=== PATIENT | male | born 2000 | race Caucasian/White ===

== ENCOUNTER → 2020-02-07 | Outpatient (CLI) | payer SELFPAY ==
[~2020-02-07] MED LIST: CLAR5CHW; LORATADINE; PULM0.25; TYLENOL #3 ELIXIR
== END ==
LOC: M LABSMTC 11:07
PROVIDERS: ATTEND Pediatrics
DX: Z20.828 Contact with and (suspected) exposure to other viral communicable diseases (principal)

== ENCOUNTER → 2020-09-20 | Outpatient (CLI) | payer SELFPAY | LOC: M LABSMTC 09:48 | PROVIDERS: ATTEND Pediatrics | DX: Z20.828 Contact with and (suspected) exposure to other viral communicable diseases (principal); Z11.59 Encounter for screening for other viral diseases ==

== ENCOUNTER → 2020-12-14 | Outpatient (CLI) | payer OTHER ==
[2020-12-14 14:28] LABS: BASO % 0.3 % (0.0-1.0); EOS # 0.2 10^3/uL (0.0-0.5); EOS % 3.3 % (0.0-3.0); HEMATOCRIT 41.4 % (42.0-52.0); HEMOGLOBIN 13.8 g/dl (13.5-17.5); MEAN CORPUSCULAR HEMOGLOBIN 29.2 pg (27.0-33.0); MEAN CORPUSCULAR HGB CONC 33.3 g/dl (32.0-36.5); MEAN CORPUSCULAR VOLUME 87.7 fl (80.0-96.0); MONO # 0.7 10^3/uL (0.0-0.8); MONO % 10.2 % (2.0-8.0); NEUTROPHILS # 4.3 10^3/uL (1.5-8.5); NEUTROPHILS % 59.1 % (36.0-66.0); PLATELET COUNT, AUTOMATED 280 10^3/uL (150-450); RED BLOOD COUNT 4.72 10^6/uL (4.30-6.10); WHITE BLOOD COUNT 7.3 10^3/uL (4.0-10.0)
[2020-12-14 14:59] LABS: ALBUMIN 3.6 GM/DL (3.2-5.2); ALT/SGPT 25 U/L (12-78); BILIRUBIN,TOTAL 0.3 MG/DL (0.2-1.0); BLOOD UREA NITROGEN 20 MG/DL (7-18); CALCIUM LEVEL 9.2 MG/DL (8.5-10.1); CARBON DIOXIDE LEVEL 26 MEQ/L (21-32); CHLORIDE LEVEL 109 MEQ/L (98-107); CREATININE FOR GFR 0.69 MG/DL (0.70-1.30); GLUCOSE, FASTING 86 MG/DL (70-100); RHEUMATOID FACTOR QUANT < 10.0 IU/ML (<15.0); SODIUM LEVEL 140 MEQ/L (136-145); TOTAL PROTEIN 6.9 GM/DL (6.4-8.2)
[2020-12-14 15:07] LABS: ERYTHROCYTE SEDIMENTATION RATE 6 mm/hr (0-15)
[2020-12-16 12:09] LABS: VITAMIN B12 LEVEL 353 PG/ML
[2020-12-16 12:25] LABS: FOLATE 17.2 NG/ML
[2020-12-16 15:20] LABS: ALBUMIN % 58.2 % (55.8-66.1); ALPHA-1-GLOBULIN % 3.8 % (2.9-4.9); ALPHA-2-GLOBULINS % 11.3 % (7.1-11.8); BETA-1-GLOBULINS % 5.8 % (4.7-7.2)
[2020-12-16 15:21] LABS: ALBUMIN 4.02 GM/DL (3.29-5.55); ALPHA-1-GLOBULINS 0.26 GM/DL (0.17-0.41); ALPHA-2-GLOBULINS 0.78 GM/DL (0.42-0.99); BETA-2-GLOBULINS 0.43 GM/DL (0.19-0.55); BETA-2-GLOBULINS % 6.2 % (3.2-6.5); GAMMA GLOBULIN % 14.7 % (11.1-18.8); GAMMA GLOBULINS 1.01 GM/DL (0.65-1.58)
== END ==
LOC: M LAB 13:41
PROVIDERS: ATTEND Psychiatry & Neurology Neurology
DX: R25.1 Tremor, unspecified (principal); R53.1 Weakness

== ENCOUNTER 2020-12-25 08:53 | Emergency (ER) | payer OTHER ==
[~2020-12-25] VITALS: Ht 185.4 cm; Wt 101.7 kg
--- OUTSIDE RECORDS SUMMARY | 2020-12-25 09:01 | CCD ---
Author Author [facility] Organization [facility] Address Unknown Phone Unavailable Care Team Providers Care Special Services Coordinator Name Role Phone Mayela CLEMENT MD Unavailable Unavailable Mayela CLEMENT MD Unavailable Unavailable Mayela CLEMENT MD Unavailable Unavailable Mayela CLEMENT MD Unavailable Unavailable Mayela CLEMENT MD Unavailable Unavailable Mayela CLEMENT MD Unavailable Unavailable Mayela CLEMENT MD Unavailable Unavailable Mayela CLEMENT MD Unavailable Unavailable Mayela CLEMENT MD Unavailable Unavailable Mayela CLEMENT MD Unavailable Unavailable Mayela CLEMENT MD Unavailable Unavailable Mayela CLEMENT MD Unavailable Unavailable Mayela CLEMENT MD Unavailable Unavailable Mayela CLEMENT MD Unavailable Unavailable Mayela CLEMENT MD Unavailable Unavailable aMyela CLEMENT MD Unavailable Unavailable Mayela CLEMENT MD Unavailable Unavailable Mayela CLEMENT MD Unavailable Unavailable Mayela CLEMENT MD Unavailable Unavailable Mayela CLEMENT MD Unavailable Unavailable Mayela CLEMENT MD Unavailable Unavailable Mayela CLEMENT MD Unavailable Unavailable Mayela CLEMENT MD Unavailable Unavailable Mayela CLEMENT MD Unavailable Unavailable Mayela CLEMENT MD Unavailable Unavailable Mayela CLEMENT MD Unavailable Unavailable Mayela CLEMENT MD Unavailable Unavailable Mayela CLEMENT MD Unavailable Unavailable Mayela CLEMENT MD Unavailable Unavailable Mayela CLEMENT MD Unavailable Unavailable Mayela CLEMENT MD Unavailable Unavailable Mayela CLEMENT MD Unavailable Unavailable Mayela CLEMENT MD Unavailable Unavailable Mayela CLEMENT MD Unavailable Unavailable Mayela CLEMENT MD Unavailable Unavailable Mayela CLEMENT MD Unavailable Unavailable Mayela CLEMENT MD Unavailable Unavailable Mayela CLEMENT MD Unavailable Unavailable Mayela CLEMENT MD Unavailable Unavailable Mayela CLEMENT MD Unavailable Unavailable Mayela CLEMENT MD Unavailable Unavailable Mayela CLEMENT MD Unavailable Unavailable Mayela CLEMENT MD Unavailable Unavailable Mayela CLEMENT MD Unavailable Unavailable Mayela CLEMENT MD Unavailable Unavailable Mayela CLEMENT MD Unavailable Unavailable Mayela CLEMENT MD Unavailable Unavailable Mayela CLEMENT MD Unavailable Unavailable Mayela CLEMENT MD Unavailable Unavailable Mayela CLEMENT MD Unavailable Unavailable Mayela CLEEMNT MD Unavailable Unavailable Mayela CLEMENT MD Unavailable Unavailable Mayela CLEMENT MD Unavailable Unavailable Mayela CLEMENT MD Unavailable Unavailable Mayela CLEMENT MD Unavailable Unavailable Mayela CLEMENT MD Unavailable Unavailable Mayela CLEMENT MD Unavailable Unavailable Mayela CLEMENT MD Unavailable Unavailable Mayela CLEMENT MD Unavailable Unavailable Mayela CLEMENT MD Unavailable Unavailable Mayela CLEMENT MD Unavailable Unavailable Mayela CLEMENT MD Unavailable Unavailable Mayela CLEMENT MD Unavailable Unavailable Mayela CLEMENT MD Unavailable Unavailable Mayela CLEMENT MD Unavailable Unavailable Mayela CLEMENT MD Unavailable Unavailable Mayela CLEMENT MD Unavailable Unavailable Mayela CLEMENT MD Unavailable Unavailable Mayela CLEMENT MD Unavailable Unavailable Mayela CLEMENT MD Unavailable Unavailable Mayela CLEMENT MD Unavailable Unavailable Mayela CLEMENT MD Unavailable Unavailable Mayela CLEMENT MD Unavailable Unavailable Mayela CLEMENT MD Unavailable Unavailable Mayela CLEMENT MD Unavailable Unavailable Mayela CLEMENT MD Unavailable Unavailable LANIEDE ARIAS MD Unavailable Unavailable LANIEDE MD Unavailable Unavailable LANIEDE MD Unavailable Unavailable LANIEDE MD Unavailable Unavailable LANIEDE MD Unavailable Unavailable LANIEDE MD Unavailable Unavailable LANIEDE MD Unavailable Unavailable LANIEDE MD Unavailable Unavailable LANIEDE MD Unavailable Unavailable LANIEDE MD Unavailable Unavailable LANIEDE MD Unavailable Unavailable LANIEDE MD Unavailable Unavailable LANIEDE MD Unavailable Unavailable LANIEDE MD Unavailable Unavailable LANIEDE MD Unavailable Unavailable LANIEDE MD Unavailable Unavailable LANIEDE MD Unavailable Unavailable LANIEDE MD Unavailable Unavailable LANIEDE MD Unavailable Unavailable LANIEDE MD Unavailable Unavailable LANIEDE MD Unavailable Unavailable LANIEDE MD Unavailable Unavailable LANIE, DE VAZQUEZ Unavailable Unavailable LANIE, DE VAZQUEZ Unavailable Unavailable LANIEDE MD Unavailable Unavailable LANIEDE ARIAS MD Unavailable Unavailable LANIEDE MD Unavailable Unavailable LANIEDE MD Unavailable Unavailable LANIE, DE VAZQUEZ Unavailable Unavailable LANIEDE MD Unavailable Unavailable LANIE, DE VAZQUEZ Unavailable Unavailable LANIE, DE VAZQUEZ Unavailable Unavailable LANIE, DE MD Unavailable Unavailable LANIE, DE MD Unavailable Unavailable LANIE, DE MD Unavailable Unavailable LANIE, DE MD Unavailable Unavailable LANIE, DE MD Unavailable Unavailable LANIE, DE MD Unavailable Unavailable LANIE, DE MD Unavailable Unavailable LANIE, DE MD Unavailable Unavailable LANIE, DE MD Unavailable Unavailable LANIE, DE MD Unavailable Unavailable LANIE, DE MD Unavailable Unavailable Tate ORTIZ DPM Unavailable Unavailable Tate ORTIZ DPM Unavailable Unavailable Tate ORTIZ DPM Unavailable Unavailable Tate ORTIZ DPM Unavailable Unavailable Tate ORTIZ DPM Unavailable Unavailable Tate ORTIZ DPM Unavailable Unavailable Tate ORTIZ DPM Unavailable Unavailable Tate ORTIZ DPM Unavailable Unavailable Tate ORTIZ DPM Unavailable Unavailable Tate ORTIZ DPM Unavailable Unavailable Tate ORTIZ DPM Unavailable Unavailable Tate ORTIZ DPM Unavailable Unavailable Tate ORTIZ DPM Unavailable Unavailable Tate ORTIZ DPM Unavailable Unavailable Tate ORTIZ DPM Unavailable Unavailable Tate ORTIZ DPM Unavailable Unavailable Tate ORTIZ DPM Unavailable Unavailable Tate ORTIZ DPM Unavailable Unavailable Tate ORTIZ DPM Unavailable Unavailable Tate ORTIZ DPM Unavailable Unavailable Tate ORTIZ DPM Unavailable Unavailable Tate ORTIZ DPM Unavailable Unavailable Tate ORTIZ DPM Unavailable Unavailable Tate ORTIZ DPM Unavailable Unavailable Tate ORTIZ DPM Unavailable Unavailable Tate ORTIZ DPM Unavailable Unavailable Tate ORTIZ DPM Unavailable Unavailable Tate ORTIZ DPM Unavailable Unavailable Tate ORTIZ DPM Unavailable Unavailable Tate ORTIZ DPM Unavailable Unavailable Tate ORTIZ DPM Unavailable Unavailable Isaura Vaca PA Unavailable Unavailable Isaura Vaca PA Unavailable Unavailable Isaura Vaca PA Unavailable Unavailable Isaura Vaca PA Unavailable Unavailable Isaura Vaca PA Unavailable Unavailable Isaura Vaca PA Unavailable Unavailable Isaura Vaca PA Unavailable Unavailable Isaura Vaca PA Unavailable Unavailable Isaura Vaca PA Unavailable Unavailable Isaura Vaca PA Unavailable Unavailable Nola, D Juno PA Unavailable Unavailable Nola, D Juno PA Unavailable Unavailable Nola, D Juno PA Unavailable Unavailable Nola, D Juno PA Unavailable Unavailable Nola, D Juno PA Unavailable Unavailable Nola, D Juno PA Unavailable Unavailable Nola, D Juno PA Unavailable Unavailable Nola, D Juno PA Unavailable Unavailable Nola, D Juno PA Unavailable Unavailable Nola, D Juno PA Unavailable Unavailable Nola, D Juno PA Unavailable Unavailable Nola, D Juno PA Unavailable Unavailable Nola, D Juno PA Unavailable Unavailable Nola, D Juno PA Unavailable Unavailable Nola, D Juno PA Unavailable Unavailable Nola, D Juno PA Unavailable Unavailable Nola, D Juno PA Unavailable Unavailable Nola, D Juno PA Unavailable Unavailable Nola, D Juno PA Unavailable Unavailable Nola, D Juno PA Unavailable Unavailable Nola, D Juno PA Unavailable Unavailable Nola, D Juno PA Unavailable Unavailable Nola, D Juno PA Unavailable Unavailable Nola, D Juno PA Unavailable Unavailable Nola, D Juno PA Unavailable Unavailable Nola, D Juno PA Unavailable Unavailable Nola, D Juno PA Unavailable Unavailable Nola, D Juno PA Unavailable Unavailable Nola, D Juno PA Unavailable Unavailable Nola, D Juno PA Unavailable Unavailable Nola, D Juno PA Unavailable Unavailable Nola, D Juno PA Unavailable Unavailable Nola, D Juno PA Unavailable Unavailable Nola, D Juno PA Unavailable Unavailable Nola, D Juno PA Unavailable Unavailable Nola, D Juno PA Unavailable Unavailable Nola, D Juno PA Unavailable Unavailable Nola, D Juno PA Unavailable Unavailable Nola, D Juno PA Unavailable Unavailable Nola, D Juno PA Unavailable Unavailable Nola, D Juno PA Unavailable Unavailable Nola, D Juno PA Unavailable Unavailable Nola, D Juno PA Unavailable Unavailable Nola, D Juno PA Unavailable Unavailable Nola, D Juno PA Unavailable Unavailable Nola, D Juno PA Unavailable Unavailable Nola, D Juno PA Unavailable Unavailable Nola, D Juno PA Unavailable Unavailable Nola, D Juno PA Unavailable Unavailable Nola, D Juno PA Unavailable Unavailable Nola, D Juno PA Unavailable Unavailable Nola, D Juno PA Unavailable Unavailable Nola, D Juno PA Unavailable Unavailable Nola, D Juno PA Unavailable Unavailable Nola, D Juno PA Unavailable Unavailable Nola, D Juno PA Unavailable Unavailable Nola, D Juno PA Unavailable Unavailable Nola, D Juno PA Unavailable Unavailable Fish, J Eugene Unavailable Unavailable Fish, J Eugene Unavailable Unavailable Fish, J Eugene Unavailable Unavailable Fish, J Eugene Unavailable Unavailable Fish, J Eugene Unavailable Unavailable Fish, J Eugene Unavailable Unavailable Fish, J Eugene Unavailable Unavailable Fish, J Eugene Unavailable Unavailable Fish, J Eugene Unavailable Unavailable Fish, J Eugene Unavailable Unavailable Fish, J Eugene Unavailable Unavailable Fish, J Eugene Unavailable Unavailable Fish, J Eugene Unavailable Unavailable Fish, J Eugene Unavailable Unavailable Fish, J Eugene Unavailable Unavailable Fish, J Eugene Unavailable Unavailable Fish, J Eugene Unavailable Unavailable Fish, J Eugene Unavailable Unavailable Fish, J Eugene Unavailable Unavailable Fish, J Eugene Unavailable Unavailable Fish, J Eugene Unavailable Unavailable Fish, J Eugene Unavailable Unavailable Fish, J Eugene Unavailable Unavailable Fish, J Eugene Unavailable Unavailable Fish, J Eugene Unavailable Unavailable Fish, J Eugene Unavailable Unavailable Fish, J Eugene Unavailable Unavailable Fish, J Eugene Unavailable Unavailable Fish, J Eugene Unavailable Unavailable Fish, J Eugene Unavailable Unavailable Fish, J Eugene Unavailable Unavailable Fish, J Eugene Unavailable Unavailable Fish, J Eugene Unavailable Unavailable Fish, J Eugene Unavailable Unavailable Fish, J Eugene Unavailable Unavailable Fish, J Eugene Unavailable Unavailable Fish, J Eugene Unavailable Unavailable Fish, J Eugene Unavailable Unavailable Fish, J Eugene Unavailable Unavailable Fish, J Eugene Unavailable Unavailable Fish, J Eugene Unavailable Unavailable Fish, J Eugene Unavailable Unavailable Fish, J Eugene Unavailable Unavailable Fish, J Eugene Unavailable Unavailable Fish, J Eugene Unavailable Unavailable Fish, J Eugene Unavailable Unavailable Fish, J Eugene Unavailable Unavailable Fish, J Eugene Unavailable Unavailable Fish, J Eugene Unavailable Unavailable Fish, J Eugene Unavailable Unavailable Fish, J Eugene Unavailable Unavailable Fish, J Eugene Unavailable Unavailable Fish, J Eugene Unavailable Unavailable Fish, J Eugene Unavailable Unavailable Fish, J Eugene Unavailable Unavailable Fish, J Eugene Unavailable Unavailable Fish, J Eugene Unavailable Unavailable Fish, J Eugene Unavailable Unavailable Fish, J Eugene Unavailable Unavailable Fish, J Eugene Unavailable Unavailable Fish, J Eugene Unavailable Unavailable Fish, J Eugene Unavailable Unavailable Fish, J Eugene Unavailable Unavailable Fish, J Eugene Unavailable Unavailable Fish, J Eugene Unavailable Unavailable Fish, J Eugene Unavailable Unavailable Fish, J Eugene Unavailable Unavailable Fish, J Eugene Unavailable Unavailable Fish, J Eugene Unavailable Unavailable Fish, J Eugene Unavailable Unavailable Fish, J Eugene Unavailable Unavailable Fish, J Eugene Unavailable Unavailable Fish, J Eugene Unavailable Unavailable Fish, J Eugene Unavailable Unavailable Fish, J Eugene Unavailable Unavailable Fish, J Eugene Unavailable Unavailable Fish, J Eugene Unavailable Unavailable Fish, J Eugene Unavailable Unavailable Fish, J Eugene Unavailable Unavailable Fish, J Eugene Unavailable Unavailable Fish, J Eugene Unavailable Unavailable Fish, J Eugene Unavailable Unavailable Fish, J Eugene Unavailable Unavailable Fish, J Eugene Unavailable Unavailable Wineman JR, R Paul PA-C Unavailable Unavailable Wineman JR, R Paul PA-C Unavailable Unavailable Wineman JR, R Paul PA-C Unavailable Unavailable Wineman JR, R Paul PA-C Unavailable Unavailable Wineman JR, R Paul PA-C Unavailable Unavailable Wineman JR, R Paul PA-C Unavailable Unavailable Wineman JR, R Paul PA-C Unavailable Unavailable Wineman JR, R Paul PA-C Unavailable Unavailable Wineman JR, R Paul PA-C Unavailable Unavailable Wineman JR, R Paul PA-C Unavailable Unavailable Wineman JR, R Paul PA-C Unavailable Unavailable Re-disclosure Warning The records that you are about to access may contain information from federally-assisted alcohol or drug abuse programs. If such information is present, then the following federally mandated warning applies: This information has been disclosed to you from records protected by federal confidentiality rules (42 CFR part 2). The federal rules prohibit you from making any further disclosure of this information unless further disclosure is expressly permitted by the written consent of the person to whom it pertains or as otherwise permitted by 42 CFR part 2. A general authorization for the release of medical or other information is NOT sufficient for this purpose. The Federal rules restrict any use of the information to criminally investigate or prosecute any alcohol or drug abuse patient.The records that you are about to access may contain highly sensitive health information, the redisclosure of which is protected by Article 27-F of the [place] State Public Health law. If you continue you may have access to information: Regarding HIV / AIDS; Provided by facilities licensed or operated by the [facility] Office of Mental Health; or Provided by the [facility] Office for People With Developmental Disabilities. If such information is present, then the following [facility] mandated warning applies: This information has been disclosed to you from confidential records which are protected by state law. State law prohibits you from making any further disclosure of this information without the specific written consent of the person to whom it pertains, or as otherwise permitted by law. Any unauthorized further disclosure in violation of state law may result in a fine or fpc sentence or both. A general authorization for the release of medical or other information is NOT sufficient authorization for further disc losure. Allergies and Adverse Reactions Type Description Substance Reaction Status Data Source(s ) No Known Drug Allergies No Known Drug Allergies [facility] Propensity to adverse reactions seasonal seasonal [facility] Family History Family Member Name Family Member Gender Family Member Status Date o f Status Description Data Source(s) Unknown Female Problem [facility] ([facility] Encounters Encounter Providers Location Date Indications Data Source(s ) Outpatient Attender: DE DELA CRUZ MD [facility] 10/07/2020 02:00:00 PM EDT [facility] ([facility] WALDO gonsalves) Outpatient Attender: MURALI CLEMENT MD [place] [facility] 11:00:00 AM EDT [facility] ([facility] Outpatient Attender: Juno TALLEY [place] [facility] 08:45:00 AM EDT [facility] ([facility] Outpatient Attender: Paul Hart JRConsultant: Eugene bradford 02/28/2020 11:09:00 AM EST - 02/28/2020 11:09:00 AM [facility] Outpatient Attender: Juno TALLEY [place] [facility] 03:15:00 PM EDT [facility]00 AM EDT [facility] Outpatient Attender: Juno TALLEY [place] [facility] 03:00:00 PM EDT [facility] ([facility] Celsa Cano) Immunizations Vaccine Date Status Description Data Source(s) COVID-19 VACCINE Pfizer 10/11/2020 12:00:00 AM EDT completed [facility] Vaccine Series Complete: YESThis Data wa s Submitted to [facility]. COVID-19 VACCINE Pfizer 09/20/2020 12:00:00 AM EDT completed [facility] Vaccine Series Complete: NOThis Data was Submitted to [facility]. Medications Medication Brand Name Start Date Product Form Dose Route Admi nistrative Instructions Pharmacy Instructions Status Indications Reaction Description Data Source(s) Guaifenesin 20 MG/ML Oral Solution Guaifenesin 12/05/2019 12:00:00 AM EDT ORAL active [facility] ([facility] Azithromycin 250 MG Oral Tablet Azithromycin 12/05/2019 12:00:00 AM E DT ORAL completed [facility] ([facility] Hydrocortisone 10 MG/ML / Neomycin 3.5 M G/ML / Polymyxin B 63993 UNT/ML Otic Solution [id number] 12/01/2019 12:00:00 AM EDT active [facility] ([facility] Sulfamethoxazole 800 MG / Trimethoprim 160 MG Oral Tab let Sulfamethoxazole/Trimethoprim DS 11/07/2019 12:00:00 AM EDT ORAL completed [facility] ([facility] Cephalexin 500 MG Oral Capsule [Keflex] Keflex 10/31/2019 12:00:0 0 AM EDT ORAL completed [facility] ([facility] Cephalexin 500 MG Oral Capsule [Keflex] Keflex 07/28/2019 12:00:0 0 AM EDT ORAL completed [facility] ([facility] Insurance Providers Payer name Policy type / Coverage type Policy ID Covered democrat ID Covered democrat's relationship to oliva Policy Oliva Plan Information [facility] [employer] [facility] Plan [id number] Self Community Plan SELF PAY ONLY [id number] SP [id number] [facility] COMMUNTY PLAN [id number] UN COMMUNITY PLAN XIX [id number] 18 [id number] [place] [id number] 18 [id number] [facility] MEDICAID SBHC [id number] MEDICAID SBHC CO [id number] MEDICAID -O/P EMERGENCY ROOM [id number] 18 [id number] MEDICAID -O/P [id number] MEDICAID [facility] [id number] EXCELLUS BCBS B [id number] S [id number] [place] H[place] [id number] 18 [id number] BLUE CROSS BLUE SHIELD-O/P [id number] 18 [id number] BLUE CROSS BLUE SHIELD-CLINIC [id number] BLADIMIR [id number] SP [id number] Problems, Conditions, and Diagnoses Code Display Name Description Problem Type Effective Dates Data Source(s) Z1159 Encounter for screening for other viral diseases Encounter for screening for other viral diseases Diagnosis 02/28/2020 11:09:00 AM [facility] [id number] Ingrowing nail Ingrowing nail Problem 12/07/2019 12:00: 00 AM EDT [facility] Cellulitis of right toe Cellulitis of right toe Proble m 12/07/2019 12:00:00 AM EDT [facility] Surgeries/Procedures Procedure Description Date Indications Data Source(s) Needle electromyography, each extremity, with related paraspinal areas, when performed, done with nerve conduction, amplitude and latency/velocity study; complete, five or more muscles studied, innervated by three or more nerves or four or more spinal levels (list separately in addition to the code for primary procedure). 10/14/2020 12:00:00 AM EDLuis Antonio Salmon ([facility], ) Needle electromyography, each extremity, with related paraspinal areas, when performed, done with nerve conduction, amplitude and latency/velocity study; complete, five or more muscles studied, innervated by three or more nerves or four or more spinal levels (list separately in addition to the code for primary procedure). 10/14/2020 12:00:00 AM EDT MEDEN T ([facility], ) Nerve Conduction 11-12 Studies 10/14/2020 12:00:00 AM EDT [facility] ([facility], ) MRI BRAIN BRAIN STEM W/O CONTRAST MATERIAL 10/12/2020 12:00:00 AM EDT [facility] ([facility]) MRI BRAIN BRAIN STEM W/O CONTRAST MATERIAL 10/12/2020 12:00:00 AM EDT [facility] ([facility], ) MRI SPINAL CANAL CERVICAL W/O CONTRAST MATRL 12:00:00 AM EDT [facility] ([facility]) MRI SPINAL CANAL CERVICAL W/O CONTRAST MATRL 12:00:00 AM EDT [facility] ([facility], ) ELECTROENCEPHALOGRAM W/REC AWAKE&ASLEEP 10/09/2020 12: 00:00 AM EDT [facility] ([facility], ) ELECTROENCEPHALOGRAM W/REC AWAKE&ASLEEP 10/09/2020 12: 00:00 AM EDT [facility] ([facility], ) OFFICE OUTPATIENT NEW 45 MINUTES 10/07/2020 12:00:00 A M EDT [facility] ([facility], ) OFFICE OUTPATIENT VISIT 15 MINUTES 09/19/2020 12:00:00 AM EDT [facility] ([facility] OFFICE OUTPATIENT VISIT 15 MINUTES 07/29/2020 12:00:00 AM EDT [facility] ([facility] EXCISION NAIL MATRIX PERMANENT REMOVAL 12/01/2019 12:0 0:00 AM EDT [facility] ([facility] Results ID Date Data Source [id number] 09/20/2020 12:00:00 AM EDT [facility] Name Value Range Interpretation Code Description Data Kamala rce(s) Supporting Document(s) SARS-CoV-2 (COVID-19) RNA [Presence] in Respiratory specimen by PAOLA with probe detection Not Detected [facility] This lab was ordered by [facility] and reported by [employer]. ID Date Data Source [id number] 07/29/2020 09:08:00 AM EDT [facility] Name Value Range Interpretation Code Description Data Kamala rce(s) Supporting Document(s) Thyrotropin [Units/volume] in Serum or Plasma 1.100 uIU/mL 0.450-4.50 0 [facility] ([facility] ID Date Data Source [id number] 07/29/2020 09:08:00 AM EDT [facility] ([facility] Name Value Range Interpretation Code Description Data Kamala rce(s) Supporting Document(s) Glucose [Mass/volume] in Serum or Plasma 79 mg/dL 65-99 [facility] ([facility] BUN 11 mg/dL 6-20 [facility] Creatinine [Mass/volume] in Serum or Plasma 0.64 mg/dL 0.76 -1.27 Below low normal [facility] ([facility] ) eGFR If NonAfricn Am 141 mL/min/1.73 [facility] ([facility] eGFR If Africn Am 163 mL/min/1.73 [place] DENT ([facility] currently reports eGFR in comp liance with the current recommendations of the National Kidney Foundation. [facility] will update reporting as new guidelines are published from the NKF-ASN Task force. Urea nitrogen/Creatinine [Mass Ratio] in Serum or Plasma 17 9 -20 [facility] ([facility] Sodium [Moles/volume] in Serum or Plasma 142 mmol/L 134-144 [facility] ([facility] Potassium [Moles/volume] in Serum or Plasma 4.4 mmol/L 3.5-5.2 [facility] ([facility] Chloride [Moles/volume] in Serum or Plasma 106 mmol/L 96-106 [facility] ([facility] Carbon dioxide, total [Moles/volume] in Serum or Plasma 24 mmol/L 20 -29 [facility] ([facility] Calcium [Mass/volume] in Serum or Plasma 9.5 mg/dL 8.7-10.2 [facility] ([facility] Protein [Mass/volume] in Serum or Plasma 6.7 g/dL 6.0-8.5 [facility] ([facility] Albumin [Mass/volume] in Serum or Plasma 4.3 g/dL 4.1-5.2 [facility] ([facility] Globulin [Mass/volume] in Serum by calculation 2.4 g/dL 1.5-4.5 [facility] ([facility] Albumin/Globulin [Mass Ratio] in Serum or Plasma 1.8 1.2-2.2 [facility] ([facility] Bilirubin.total [Mass/volume] in Serum or Plasma 0.3 mg/dL 0.0-1.2 MEDENT ([facility] Alkaline phosphatase [Enzymatic activity/volume] in Serum or Plasma 98 IU/L 55-125 [facility] ([facility] Please note reference interval change* * Aspartate aminotransferase [Enzymatic activity/volume] in Serum or Plasma 15 IU/L 0-40 [facility] ([facility] Alanine aminotransferase [Enzymatic activity/volume] in Seru m or Plasma 17 IU/L 0-44 [facility] ID Date Data Source [id number] 07/29/2020 09:08:00 AM EDT MED[facility] ([facility] Name Value Range Interpretation Code Description Data Kamala rce(s) Supporting Document(s) Erythrocytes [#/volume] in Blood by Automated count 4.90 x10E6/uL 4.1 4-5.80 MED[facility] ([facility] Leukocytes [#/volume] in Blood by Automated count 5.2 x10E3/uL 3.4-10 .8 MED[facility] ([facility] Hematocrit [Volume Fraction] of Blood by Automated count 42.6 % 3 7.5-51.0 [facility] ([facility] Hemoglobin [Mass/volume] in Blood 14.3 g/dL 13.0-17.7 [facility] ([facility] Erythrocyte mean corpuscular volume [Entitic volume] by Auto mated count 87 fL 79-97 [facility] Erythrocyte mean corpuscular hemoglobin concentration [Mass/volume] by Automated count 33.6 g/dL 31.5-35.7 [facility] ([facility] Erythrocyte mean corpuscular hemoglobin [Entitic mass] by Automated count 29.2 pg 26.6-33.0 [facility] ([facility] Platelets [#/volume] in Blood by Automated count 269 x10E3/uL 150-450 [facility] ([facility] Neutrophils 58 % [facility] ([facility] Erythrocyte distribution width [Ratio] by Automated count 12.4 % 11.6-15.4 [facility] ([facility] Lymphs 26 % [facility] Eosinophils/100 leukocytes in Blood by Automated count 6 % [facility] ([facility] Basophils/100 leukocytes in Blood by Automated count 1 % [facility] ([facility] Monocytes/100 leukocytes in Blood by Automated count 9 % [facility] ([facility] Neutrophils [#/volume] in Blood by Automated count 3.1 x10E3/uL 1.4-7 .0 [facility] ([facility] Immature cells [#/volume] in Blood Laboratory test result [facility] ([facility] Lymphocytes [#/volume] in Blood 1.3 x10E3/uL 0.7-3.1 [facility] ([facility] Monocytes [#/volume] in Blood 0.5 x10E3/uL 0.1-0.9 [facility] ([facility] Eosinophils [#/volume] in Blood by Automated count 0.3 x10E3/uL 0.0-0 .4 [facility] ([facility] Immature granulocytes [#/volume] in Blood by Automated count 0.0 x10E3/uL 0.0-0.1 [facility] Basophils [#/volume] in Blood by Automated count 0.0 x10E3/uL 0.0-0.2 [facility] ([facility] Immature granulocytes/100 leukocytes in Blood by Automated count 0 % [facility] ([facility] Nucleated erythrocytes/100 leukocytes [Ratio] in Blood by Automated count Laboratory test result [facility] ([facility] Morphology [Interpretation] in Blood Narrative Laboratory test result [facility] ([facility] ID Date Data Source [id number] 02/28/2020 11:14:00 AM EST MED[facility] ([facility] Name Value Range Interpretation Code Description Data Kamala rce(s) Supporting Document(s) Coronavirus Covid-19 Laboratory test result [facility] ([facility] .~.~[id number] ID Date Data Source [id number] 02/28/2020 11:14:00 AM EST [facility] Name Value Range Interpretation Code Description Data Kamala rce(s) Supporting Document(s) SARS coronavirus 2 RNA [facility] This lab was ordered by [facility] tucker and reported by [facility]. ID Date Data Source [id number] 03/02/2020 06:46:00 AM EST [facility] Name Value Range Interpretation Code Description Data Kamala rce(s) Supporting Document(s) SARS-CoV-2, PALOA Not Detected Not Detected [facility] This nucleic acid amplification test was developed and its performancecharacteristics determined by [facility]. Nucleic acidamplification tests include PCR and TMA. This test has not been FDAcleared or approved. This test has been authorized by FDA under anEmergency Use Authorization (EUA). This test is only authorized forthe duration of time the declaration that circumstances existjustifying the authorization of the emergency use of in vitrodiagnostic tests for detection of SARS-CoV-2 virus and/or diagnosisof COVID-19 infection under section 564(b)(1) of the Act, 21 U.S.C.360bbb-3(b) (1), unless the authorization is terminated or revokedsooner.When diagnostic testing is negative, the possibility of a falsenegative result should be considered in the context of a patient'srecent exposures and the presence of clinical signs and symptomsconsistent with COVID- 19. An individual without symptoms of COVID-19and who is not shedding SARS-CoV-2 virus would expect to have anegative (not detected) result in this assay. ID Date Data Source [id number] 02/28/2020 11:14:00 AM EST [facility] ([facility]) Name Value Range Interpretation Code Description Data Kamala rce(s) Supporting Document(s) Laboratory test finding (navigational concept) Laboratory test result [facility] ([facility]) ID Date Data Source [id number] 02/07/2020 12:00:00 AM EST [facility] Name Value Range Interpretation Code Description Data Kamala rce(s) Supporting Document(s) 2019-nCoV RNA XXX PAOLA+probe-Imp [facility] This lab was ordered by [facility] and reported by [employer] [facility] ID Date Data Source [id number] 10/31/2019 03:47:00 PM EDT MED[facility] ([facility] Name Value Range Interpretation Code Description Data Kamala rce(s) Supporting Document(s) Bacteria identified in Unspecified specimen by Aerobe culture Laboratory test result Abnormal (applies to non-numeric results) [facility] ([facility] SRC:INFECTION RIGHT GREAT TOE Other Antibiotic [Susceptibility] Laboratory test result [facility] ([facility] SRC:INFECTION RIGHT GREAT TOE Bacteria identified in Unspecified specimen by Culture Laborator y test result Abnormal (applies to non-numeric results) MED[facility] ([facility] SRC:INFECTION RIGHT GREAT TOE Procedure Social History No Information Vital Signs ID Date Data Source UNK Name Value Range Interpretation Code Description Data Source(s) Body temperature 97.6 [degF] 97.6 [degF] [facility] ([facility] Diastolic blood pressure 66 mm[Hg] 66 mm[Hg] [facility] ([facility] Heart rate 86 /min 86 /min [facility] ([facility] Systolic blood pressure 122 mm[Hg] 122 mm[Hg] M EDENT ([facility] Respiratory rate 14 /min 14 /min [facility] ( [facility] Body height 74.5 [in_i] 74.5 [in_i] MEDENT ([facility] 6'2.50" Body weight 237.00 [lb_av] 237.00 [lb_av] MEDEN T ([facility] [place] body weight 190 [lb_av] 190 [lb_av] MEDEN T ([facility] Body mass index (BMI) [Ratio] 30.0 kg/m2 30.0 k g/m2 [facility] ([facility] Oxygen saturation in Arterial blood by Pulse oximetry 97 % 97 % [facility] ([facility] Body weight 248.00 [lb_av] 248.00 [lb_av] MEDEN T ([facility] Body temperature 97.2 [degF] 97.2 [degF] [facility] ([facility] Respiratory rate 16 /min 16 /min [facility] ( [facility] Body height 74.5 [in_i] 74.5 [in_i] MEDENT ([facility] 6'2.50" Diastolic blood pressure 70 mm[Hg] 70 mm[Hg] [facility] ([facility] [place] body weight 190 [lb_av] 190 [lb_av] MEDEN T ([facility] Body mass index (BMI) [Ratio] 31.4 kg/m2 31.4 k g/m2 [facility] ([facility] Oxygen saturation in Arterial blood by Pulse oximetry 98 % 98 % [facility] ([facility] Systolic blood pressure 124 mm[Hg] 124 mm[Hg] M EDENT ([facility] Heart rate 58 /min 58 /min [facility] ([facility] Heart rate 81 /min 81 /min MED[facility] ([facility]) Body temperature 96.7 [degF] 96.7 [degF] MEDENT ([facility]) Oxygen saturation in Arterial blood by Pulse oximetry 96 % 96 % MEDENT ([facility]) Body temperature 97.6 [degF] 97.6 [degF] MED[facility] ([facility] Respiratory rate 16 /min 16 /min MED[facility] ( [facility] Body height 74.5 [in_i] 74.5 [in_i] MEDENT ([facility] 6'2.50" Oxygen saturation in Arterial blood by Pulse oximetry 96 % 96 % [facility] ([facility] Systolic blood pressure 110 mm[Hg] 110 mm[Hg] M EDENT ([facility] Diastolic blood pressure 84 mm[Hg] 84 mm[Hg] MED[facility] ([facility] Heart rate 86 /min 86 /min [facility] ([facility] Body height [Percentile] 96 % 96 % MED[facility] ([facility] [place] body weight 190 [lb_av] 190 [lb_av] MEDEN T ([facility] Body height 74.5 [in_i] 74.5 [in_i] [facility] ([facility] 6'2.50" Body weight 297.00 [lb_av] 297.00 [lb_av] MEDEN T ([facility] Systolic blood pressure 122 mm[Hg] 122 mm[Hg] M EDENT ([facility] Diastolic blood pressure 84 mm[Hg] 84 mm[Hg] [facility] ([facility] Heart rate 97 /min 97 /min [facility] ([facility] Body mass index (BMI) [Ratio] 37.6 kg/m2 37.6 k g/m2 [facility] ([facility] Oxygen saturation in Arterial blood by Pulse oximetry 98 % 98 % MED[facility] ([facility] Diastolic blood pressure 84 mm[Hg] 84 mm[Hg] LAURENCE ([facility] Body temperature 96.8 [degF] 96.8 [degF] LAURENCE ([facility] Heart rate 97 /min 97 /min MEDENT ([facility] Respiratory rate 16 /min 16 /min MEDLEO ( [facility] Body height 74.5 [in_i] 74.5 [in_i] LAURENCE ([facility] 6'2.50" Body height [Percentile] 96 % 96 % LAURENCE ([facility] Body weight 297.00 [lb_av] 297.00 [lb_av] PIPER T ([facility] Systolic blood pressure 122 mm[Hg] 122 mm[Hg] M EDENT ([facility] Body mass index (BMI) [Ratio] 37.6 kg/m2 37.6 k g/m2 LAURENCE ([facility] [place] body weight 190 [lb_av] 190 [lb_av] EVELINAEN T ([facility]
--- OUTSIDE RECORDS SUMMARY | 2020-12-25 09:01 | CCD | Continuity of Care Document ---
Author Author Les TRINH M.D. Organization Unknown Address [address] [place] [address] Phone [phone] Care Team Providers Care Revenue Manager Name Role Phone Juno Vaca AUTM [phone] Eugene Mclean D.O. AUTM [phone] Problems Active Problems Provider Date Allergic rhinitis Onset: 06/25/2010 Social History Type Date Description Comments Sex Unknown Allergies, Adverse Reactions, Alerts Description No Known Drug Allergies Medications Active Medications SIG Qnty Indications Ordering Provide r Date Famotidine 20mg Tablets Take One Tablet By Mouth Every Day AT Bedtime 30tabs Eugene Mclean D.O. 0 03/17/2018 Cetirizine HCL 10mg Tablets 1 by mouth every day 90tabs Eugene Mclean D.O. 07/07/2013 Immunizations Description No Information Available Vital Signs Description No Information Available Results Description No Information Available Procedures Date Code Description Status 10/09/2020 73819 EEG Recording Awake & Asleep Com pleted 10/07/2020 53451 Office/Outpatient New Moderate M DM 45-59 Minutes Completed Medical Devices Description No Information Available Encounters Type Date Location Provider Dx Diagnosis Office Visit 10/07/2020 2:00p [place] M.[place]. R25.8 Other abnormal involuntary movements M62.9 Disorder of muscle, unspecif ied G25.3 Myoclonus Assessments Date Code Description Provider 10/09/2020 G25.0 Essential tremor EEG 10/07/2020 R25.8 Other abnormal involuntary movem ents Stacey Cordova M.D. 10/07/2020 M62.9 Disorder of muscle, unspecified Stacey Tasha, M.D. 10/07/2020 G25.3 Myoclonus Alexis Nj Plan of Treatment Future Appointment(s):* 12/16/2020 8:15 am - Stacey Cordova M.D. at Main office - [place] Functional Status Description No Information Available Mental Status Description No Information Available Referrals Description No Information Available
--- OUTSIDE RECORDS SUMMARY | 2020-12-25 09:01 | CCD | Continuity of Care Document ---
Author Author Les GARCIA M.D. Organization Unknown Address [address] [place] [address] Phone [phone] Care Team Providers Care Terrazzo Polisher Helper Name Role Phone Juno Vaca AUTM [phone] Eugene Mclean D.O. AUTM [phone] Problems Active Problems Provider Date Allergic rhinitis Onset: 06/25/2010 Social History Type Date Description Comments Sex Unknown Allergies, Adverse Reactions, Alerts Description No Known Drug Allergies Medications Active Medications SIG Qnty Indications Ordering Provide r Date Famotidine 20mg Tablets Take One Tablet By Mouth Every Day AT Bedtime 30tabs Eugene Mclean D.ORobert 0 03/17/2018 Cetirizine HCL 10mg Tablets 1 by mouth every day 90tabs Eugene Mclean D.O. 07/07/2013 Immunizations Description No Information Available Vital Signs Description No Information Available Results Description No Information Available Procedures Date Code Description Status 10/14/2020 09631 Nerve Conduction 11-12 Studies C ompleted 10/14/2020 31721 Needle Electromyography Complete , Five Or More Muscles Studied Completed 10/14/2020 68956 Needle Electromyography Complete , Five Or More Muscles Studied Completed 10/12/2020 47584 MRI Spine Cervical W/O Contrast Completed 10/12/2020 42384 MRI Spine Cervical W/O Contrast Completed 10/12/2020 33242 MRI Brain W/O Contrast Completed 10/12/2020 05246 MRI Brain W/O Contrast Completed 10/09/2020 01267 EEG Recording Awake & Asleep Com pleted 10/09/2020 36960 EEG Recording Awake & Asleep Com pleted 10/07/2020 12361 Office/Outpatient New Moderate M DM 45-59 Minutes Completed Medical Devices Description No Information Available Encounters Type Date Location Provider Dx Diagnosis Office Visit 10/07/2020 2:00p Main office - [place] Stacey Cordova M.D. R25.8 Other abnormal involuntary movements M62.9 Disorder of muscle, unspecif ied G25.3 Myoclonus Assessments Date Code Description Provider 10/14/2020 G56.01 Carpal tunnel syndrome, right up per limb Cj Garcia M.D. 10/14/2020 G56.03 Carpal tunnel syndrome, bilatera l upper limbs Cj Garcia M.D. 10/14/2020 M62.838 Other muscle spasm Griselda Sharma 10/14/2020 G56.02 Carpal tunnel syndrome, left upp er limb Cj Garcia M.D. 10/12/2020 R42 Dizziness and giddiness Hermelinda Bernal M.D. 10/12/2020 R42 Dizziness and giddiness MRI 10/12/2020 G43.809 Other migraine, not intractable, without status migrainosus Hermelinda Cordova M.D. 10/12/2020 G43.809 Other migraine, not intractable, without status migrainosus MRI 10/12/2020 M54.2 Cervicalgia Rae Dc 10/12/2020 M54.2 Cervicalgia MRI 10/09/2020 G25.0 Essential tremor Griselda Nj 10/09/2020 G25.0 Essential tremor EEG 10/07/2020 R25.8 Other abnormal involuntary movem ents Stacey Cordova M.D. 10/07/2020 M62.9 Disorder of muscle, unspecified Stacey Cordova M.D. 10/07/2020 G25.3 Myoclonus Alexis Nj Plan of Treatment Future Appointment(s):* 12/16/2020 8:15 am - Stacey Cordova M.D. at Main office - [place] Functional Status Description No Information Available Mental Status Description No Information Available Referrals Refer to Reason for Referral Status Appt Date Created Created
--- OUTSIDE RECORDS SUMMARY | 2020-12-25 09:01 | CCD | Continuity of Care Document ---
Author Author Les MACIEL Organization Unknown Address [address] [place] [address] Phone [phone] Care Team Providers Care Billet Checker Name Role Phone Juno Vaca AUTM [phone] Eugene Mclean D.O. AUTM [phone] Problems Active Problems Provider Date Allergic rhinitis [...] by mouth every day 90tabs Eugene Mclean D.ORobert 07/07/2013 Immunizations Description No Information Available Vital Signs Description No Information Available Results Description No Information Available Procedures Date Code Description Status 10/14/2020 28431 Nerve Conduction 11-12 Studies C ompleted 10/14/2020 52791 Needle Electromyography Complete , Five Or More Muscles Studied Completed 10/14/2020 58668 Needle Electromyography Complete , Five Or More Muscles Studied Completed 10/12/2020 86582 MRI Spine Cervical W/O Contrast Completed 10/12/2020 56300 MRI Spine Cervical W/O Contrast Completed 10/12/2020 02607 MRI Brain W/O Contrast Completed 10/12/2020 04073 MRI Brain W/O Contrast Completed 10/09/2020 77617 EEG Recording Awake & Asleep Com pleted 10/09/2020 71910 EEG Recording Awake & Asleep Com pleted 10/07/2020 54484 Office/Outpatient New Moderate M DM 45-59 Minutes Completed Medical Devices Description No Information Available Encounters Type Date Location Provider Dx Diagnosis Office Visit 10/07/2020 2:00p Main office - [place] Stacey Cordova M.D. R25.8 Other abnormal involuntary movements M62.9 Disorder of muscle, unspecif ied G25.3 Myoclonus Assessments Date Code Description Provider 10/14/2020 G56.03 Carpal tunnel syndrome, bilatera l upper limbs Cj Garcia M.D. 10/14/2020 M62.838 Other muscle spasm Griselda Sharma 10/12/2020 R42 Dizziness and giddiness Hermelinda Bernal [...] Treatment Future Appointment(s):* 12/16/2020 8:15 am - Stcaey Cordova M.D. at Main office - [place] Functional Status Description No Information Available Mental Status Description No Information Available Referrals Refer to Reason for Referral Status Appt Date Created Created
--- OUTSIDE RECORDS SUMMARY | 2020-12-25 09:01 | CCD | Continuity of Care Document ---
Author Author Les DELA CRUZ M.D. Organization Unknown Address [address] [place] [address] Phone [phone] Care Team Providers Care Floriculture Teacher Name Role Phone Juno Vaca AUTM [phone] Eugene Mclean D.O. AUTM [phone] Problems Description No Information Available Social History Type Date Description Comments Sex Unknown Allergies, Adverse Reactions, Alerts Description No Information Available Medications Description No Information Available Immunizations Description No Information Available Vital Signs Description No Information Available Results Description No Information Available Procedures Description No Information Available Medical Devices Description No Information Available Encounters Description No Information Available Assessments Description No Information Available Plan of Treatment No Information Available Functional Status Description No Information Available Mental Status Description No Information Available Referrals Description No Information Available
--- OUTSIDE RECORDS SUMMARY | 2020-12-25 09:01 | CCD | Continuity of Care Document ---
Author Author Les MURRAY Organization Unknown Address [address] [place] [address] Phone [phone] Care Team Providers Care Molded Candles Wicker Name Role Phone Juno Vaca AUTM [phone] Eugene Mclean D.O. AUTM [phone] Problems Active Problems Provider Date Allergic rhinitis [...] Information Available Procedures Date Code Description Status 10/07/2020 52893 Office/Outpatient New Moderate M DM 45-59 Minutes Completed Medical Devices Description No Information Available Encounters Type Date Location Provider Dx Diagnosis Office Visit 10/07/2020 2:00p Main office - [place] Stacey Cordova M.D. R25.8 Other abnormal involuntary movements M62.9 Disorder of muscle, unspecif ied G25.3 Myoclonus Assessments Date Code Description Provider 10/07/2020 R25.8 Other abnormal involuntary movem ents Stacey Cordova M.D. 10/07/2020 M62.9 Disorder of muscle, unspecified Stacey Cordova M.D. 10/07/2020 G25.3 Myoclonus Alexis Nj Plan of Treatment Future Appointment(s):* 10/12/2020 6:00 pm - MRI at [facility] * 10/12/2020 5:15 pm - MRI at [facility] * 12/16/2020 8:15 am - Stacey Cordova M.D. at [facility] * 10/14/2020 1:40 pm - Cj Garcia M.D. at [facility] Functional Status Description No Information Available Mental Status Description No Information Available Referrals Description No Information Available
--- OUTSIDE RECORDS SUMMARY | 2020-12-25 09:01 | CCD | Continuity of Care Document ---
Author Author Les CORDOVA M.D. Organization Unknown Address [address] [place] [address] Phone [phone] Care Team Providers Care Sales Officer Name Role Phone Juno Vaca AUTM [phone] Eugene Mclean D.O. AUTM [phone] Problems Active Problems Provider Date Allergic rhinitis [...] Available Procedures Date Code Description Status 10/07/2020 26939 Office/Outpatient New Moderate M DM 45-59 Minutes Completed Medical Devices Description No Information Available Encounters Type Date Location Provider Dx Diagnosis Office Visit 10/07/2020 2:00p Main office - [place] Stacey Cordova M.D. R25.8 Other abnormal involuntary movements M62.9 Disorder of muscle, unspecif ied G25.3 Myoclonus Assessments Date Code Description Provider 10/07/2020 R25.8 Other abnormal involuntary movem ents Stacey Cordova M.D. 10/07/2020 M62.9 Disorder of muscle, unspecified Stacey Cordova M.D. 10/07/2020 G25.3 Myoclonus Alexis Nj Plan of Treatment Future Appointment(s):* 12/16/2020 8:15 am - Stacey Cordova M.D. at [facility] * 10/14/2020 1:40 pm - Cj Garcia M.D. at [facility] Functional Status Description No Information Available Mental Status Description No Information Available Referrals Description No Information Available
--- OUTSIDE RECORDS SUMMARY | 2020-12-25 09:01 | CCD | Continuity of Care Document ---
Author Author Les MURRAY Organization Unknown Address [address] [place] [id number] Phone [phone] Care Team Providers Care Defense Attorney Name Role Phone Juno Vaca AUTM [phone] Eugene Mclean D.O. AUTM [phone] Problems Active Problems Provider Date Allergic rhinitis [...] Available Procedures Date Code Description Status 10/14/2020 63683 Nerve Conduction 11-12 Studies C ompleted 10/14/2020 98137 Needle Electromyography Complete , Five Or More Muscles Studied Completed 10/14/2020 75335 Needle Electromyography Complete , Five Or More Muscles Studied Completed 10/12/2020 88158 MRI Spine Cervical W/O Contrast Completed 10/12/2020 41529 MRI Brain W/O Contrast Completed 10/09/2020 06581 EEG Recording Awake & Asleep Com pleted 10/09/2020 30312 EEG Recording Awake & Asleep Com pleted 10/07/2020 60275 Office/Outpatient New Moderate M DM 45-59 Minutes Completed Medical Devices Description No Information Available Encounters Type Date Location Provider Dx Diagnosis Office Visit 10/07/2020 2:00p Main office - [place] Stacey Cordova M.D. R25.8 Other abnormal involuntary movements M62.9 Disorder of muscle, unspecif ied G25.3 Myoclonus Assessments Date Code Description Provider 10/14/2020 G56.03 Carpal tunnel syndrome, bilatera l upper limbs Cj Garcia M.D. 10/14/2020 M62.838 Other muscle spasm Griselda Sharma 10/12/2020 R42 Dizziness and giddiness MRI 10/12/2020 G43.809 Other migraine, not intractable, without status migrainosus MRI 10/12/2020 M54.2 Cervicalgia MRI 10/09/2020 G25.0 Essential tremor Griselda Nj 10/09/2020 G25.0 Essential tremor EEG 10/07/2020 R25.8 Other abnormal involuntary movem ents Stacey Cordova M.D. 10/07/2020 M62.9 Disorder of muscle, unspecified Stacey Cordova M.D. 10/07/2020 G25.3 Myoclonus Alexis Nj Plan of Treatment Future Appointment(s):* 12/16/2020 8:15 am - Stacey Cordova M.D. at [facility] Functional Status Description No Information Available Mental Status Description No Information Available Referrals Description No Information Available
[2020-12-25 09:49] LABS: HEMATOCRIT 46.2 % (42.0-52.0); MEAN CORPUSCULAR HEMOGLOBIN 28.9 pg (27.0-33.0); MEAN CORPUSCULAR HGB CONC 32.5 g/dl (32.0-36.5); PLATELET COUNT, AUTOMATED 286 10^3/uL (150-450); RED BLOOD COUNT 5.19 10^6/uL (4.30-6.10); WHITE BLOOD COUNT 6.3 10^3/uL (4.0-10.0)
--- OUTSIDE RECORDS SUMMARY | 2020-12-25 10:14 | CCD ---
Author Author [facility] Organization [facility] Address Unknown Phone Unavailable Care Team Providers Care Deputy Attorney General Name Role Phone Mayela CLEMENT MD Unavailable [...] Unavailable Mayela CLEMENT MD Unavailable Unavailable Mayela CLMEENT MD Unavailable Unavailable Mayela CLEMENT MD Unavailable [...] Unavailable Unavailable Tate ORTIZ DPM Unavailable Unavailable Ttae ORTIZ DPM Unavailable Unavailable Tate ORTIZ DPM [...] is protected by Article 27-F of the [place] Public Health law. If you continue you may have access to information: Regarding HIV / AIDS; Provided by facilities licensed or operated by the [facility] Office of Mental Health; or Provided by the [facility] Office for People With Developmental Disabilities. If such information is present, then the following [facility] mandated warning applies: This information has been [...] law may result in a fine or custodial sentence or both. A general authorization for the release of medical or other information is NOT sufficient authorization for further disc losure. Allergies and Adverse Reactions Type Description Substance Reaction Status Data Source(s ) No Known Drug Allergies No Known Drug Allergies [facility] Propensity to adverse reactions seasonal seasonal [facility] Family History Family Member Name Family Member Gender Family Member Status Date o f Status Description Data Source(s) Unknown Female Problem [facility] ([facility] Encounters Encounter Providers Location Date Indications Data Source(s ) Outpatient Attender: DE DELA CRUZ MD [facility] 10/07/2020 02:00:00 PM EDT MEDENT ([facility] WALDO gonsalves) Outpatient Attender: MURALI CLEMENT MD [place] Office 11:00:00 AM EDT [facility] ([facility] Outpatient Attender: Juno TALLEY [place] Office 08:45:00 AM EDT MEDENT ([facility] Outpatient Attender: Paul Hart JRConsultant: Eugene bradford 02/28/2020 11:09:00 AM EST - 02/28/2020 11:09:00 AM [facility] Outpatient Attender: Juno TALLEY [place] Office 03:15:00 PM EDT [facility] ([facility]:15[facility]00 AM EDT MED[facility] Outpatient Attender: Juno TALLEY [place] Office 03:00:00 PM EDT MEDENT ([facility] Celsa Cano) Immunizations Vaccine Date Status Description Data Source(s) COVID-19 VACCINE Pfizer 10/11/2020 12:00:00 AM EDT completed [facility] Vaccine Series Complete: YESThis Data wa s Submitted to [facility] [employer] COVID-19 VACCINE Pfizer 09/20/2020 12:00:00 AM EDT completed [facility] Vaccine Series Complete: NOThis Data was Submitted to [facility] [employer] Medications Medication Brand Name Start Date Product [...] Neomycin 3.5 M G/ML / Polymyxin B 18167 UNT/ML Otic Solution Ktgharcd-Owfjpfmqw-DB 12/01/2019 12:00:00 AM EDT active MEDENT ([facility] Sulfamethoxazole 800 MG / Trimethoprim 160 MG Oral Tab let Sulfamethoxazole/Trimethoprim DS 11/07/2019 12:00:00 AM EDT ORAL completed MEDENT ([facility] Cephalexin 500 MG Oral Capsule [Keflex] Keflex 10/31/2019 12:00:0 0 AM EDT ORAL completed [facility] ([facility] Cephalexin 500 MG Oral Capsule [Keflex] Keflex 07/28/2019 12:00:0 0 AM EDT ORAL completed [facility] ([facility] Insurance Providers Payer name Policy type / Coverage type Policy ID Covered republican ID Covered republican's relationship to oliva Policy Oliva Plan Information [facility] [employer] [facility] Plan [id number] Self Community Plan SELF PAY ONLY [id number] SP [id number] [facility] COMMUNTY PLAN [id number] UN COMMUNITY PLAN XIX [id number] 18 [id number] [place] [id number] 18 [id number] [facility] MEDICAID SBHC [id number] MEDICAID SBHC CO [id number] MEDICAID -O/P EMERGENCY ROOM [id number] 18 [id number] MEDICAID -O/P [id number] 18 [id number] MEDICAID [facility] [id number] 18 [id number] EXCELLUS BCBS B [id number] S [id number] [place] H[place] [id number] 18 [id number] BLUE CROSS BLUE SHIELD-O/P [id number] 18 [id number] BLUE CROSS BLUE SHIELD-CLINIC [id number] 18 [id number] BLADIMIR [id number] SP [id number] Problems, Conditions, and Diagnoses Code Display Name Description Problem Type Effective Dates Data Source(s) Z1159 Encounter for screening for other viral diseases Encounter for screening for other viral diseases Diagnosis 02/28/2020 11:09:00 AM [facility] [id number] Ingrowing nail Ingrowing nail Problem 12/07/2019 12:00: [...] procedure). 10/14/2020 12:00:00 AM EDLuis Antonio Salmon ([facility], ) Needle electromyography, each extremity, with related paraspinal areas, when performed, done with nerve conduction, amplitude and latency/velocity study; complete, five or more muscles studied, innervated by three or more nerves or four or more spinal levels (list separately in addition to the code for primary procedure). 10/14/2020 12:00:00 AM EDT MEDEN T ([facility], ) Nerve Conduction 11-12 Studies 10/14/2020 12:00:00 AM EDT MEDENT ([facility], ) MRI BRAIN BRAIN STEM W/O CONTRAST MATERIAL 10/12/2020 12:00:00 AM EDT MEDENT ([facility]) MRI BRAIN BRAIN STEM W/O CONTRAST MATERIAL 10/12/2020 12:00:00 AM EDT MEDENT ([facility], ) MRI SPINAL CANAL CERVICAL W/O CONTRAST MATRL 12:00:00 AM EDT MEDENT ([facility]) MRI SPINAL CANAL CERVICAL W/O CONTRAST MATRL 12:00:00 AM EDT MEDENT ([facility], ) ELECTROENCEPHALOGRAM W/REC AWAKE&ASLEEP 10/09/2020 12: 00:00 AM EDT MEDENT ([facility], ) ELECTROENCEPHALOGRAM W/REC AWAKE&ASLEEP 10/09/2020 12: 00:00 AM EDT MEDENT ([facility], ) OFFICE OUTPATIENT NEW 45 MINUTES 10/07/2020 12:00:00 A M EDT MEDENT ([facility], ) OFFICE OUTPATIENT VISIT 15 MINUTES 09/19/2020 12:00:00 AM EDT MED[facility] ([facility] OFFICE OUTPATIENT VISIT 15 MINUTES 07/29/2020 12:00:00 AM EDT [facility] ([facility] EXCISION NAIL MATRIX PERMANENT REMOVAL 12/01/2019 12:0 0:00 AM EDT MED[facility] ([facility] Results ID Date Data Source [id number] 09/20/2020 12:00:00 AM EDT [facility] Name Value Range Interpretation Code Description Data Kamala rce(s) Supporting Document(s) SARS-CoV-2 (COVID-19) RNA [Presence] in Respiratory specimen by PAOLA with probe detection Not Detected [facility] This lab was ordered by [facility] and reported by [employer]. ID Date Data Source [id number] 07/29/2020 09:08:00 AM EDT [facility] ([facility] Name Value Range Interpretation Code Description Data Kamala rce(s) Supporting Document(s) Thyrotropin [Units/volume] in Serum or Plasma 1.100 uIU/mL 0.450-4.50 0 [facility] ([facility] ID Date Data Source [id number] 07/29/2020 09:08:00 AM EDT MEDENT ([facility] [...] or Plasma 24 mmol/L 20 -29 MEDENT ([facility] Calcium [Mass/volume] in Serum or Plasma 9.5 mg/dL 8.7-10.2 MEDENT ([facility] Protein [Mass/volume] in Serum or Plasma 6.7 g/dL 6.0-8.5 MEDENT ([facility] Albumin [Mass/volume] in Serum or Plasma 4.3 g/dL 4.1-5.2 MEDENT ([facility] Globulin [Mass/volume] in Serum by calculation 2.4 g/dL 1.5-4.5 MEDENT ([facility] Albumin/Globulin [Mass Ratio] in Serum or Plasma 1.8 1.2-2.2 MEDENT ([facility] Bilirubin.total [Mass/volume] in Serum or Plasma 0.3 mg/dL 0.0-1.2 MEDENT ([facility] Alkaline phosphatase [Enzymatic activity/volume] in Serum or Plasma 98 IU/L 55-125 MED[facility] ([facility] Please note reference interval change* * Aspartate aminotransferase [Enzymatic activity/volume] in Serum or Plasma 15 IU/L 0-40 MED[facility] ([facility] Alanine aminotransferase [Enzymatic activity/volume] in Seru m or Plasma 17 IU/L 0-44 [facility] ([facility] ID Date Data Source [id number] 07/29/2020 09:08:00 AM EDT MEDENT ([facility] Name Value Range Interpretation Code Description Data Kamala rce(s) Supporting Document(s) Erythrocytes [#/volume] in Blood by Automated count 4.90 x10E6/uL 4.1 4-5.80 MEDENT ([facility] Leukocytes [#/volume] in Blood by Automated count 5.2 x10E3/uL 3.4-10 .8 MED[facility] ([facility] Hematocrit [Volume Fraction] of [...] by Automated count 33.6 g/dL 31.5-35.7 MED[facility] ([facility] Erythrocyte mean corpuscular hemoglobin [Entitic mass] by Automated count 29.2 pg 26.6-33.0 MED[facility] ([facility] Platelets [#/volume] in Blood by Automated count 269 x10E3/uL 150-450 [facility] ([facility] Neutrophils 58 % [facility] ([facility] Erythrocyte distribution width [Ratio] by Automated count 12.4 % 11.6-15.4 [facility] ([facility] Lymphs 26 % [facility] Eosinophils/100 leukocytes in Blood [...] by Automated count 0.0 x10E3/uL 0.0-0.1 [facility] Basophils [#/volume] in Blood by Automated count 0.0 x10E3/uL 0.0-0.2 MED[facility] ([facility] Immature granulocytes/100 leukocytes in Blood by Automated count 0 % MED[facility] ([facility] Nucleated erythrocytes/100 leukocytes [Ratio] in Blood by Automated count Laboratory test result MEDENT ([facility] Morphology [Interpretation] in Blood Narrative Laboratory test result [facility] ([facility] ID Date Data Source [id number] 02/28/2020 11:14:00 AM EST MEDENT ([facility] Name Value Range Interpretation Code Description Data Kamala rce(s) Supporting Document(s) Coronavirus Covid-19 Laboratory test result [facility] ([facility] .~.~Z03.818 ID Date Data Source [id number] 02/28/2020 11:14:00 AM EST [facility] Name Value Range Interpretation Code Description Data Kamala rce(s) Supporting Document(s) SARS coronavirus 2 RNA [facility] This lab was ordered by [facility] tucker and reported by [facility]. ID Date Data Source [id number] 03/02/2020 06:46:00 AM EST [facility] Name Value Range Interpretation Code Description Data Kamala rce(s) Supporting Document(s) SARS-CoV-2, PAOLA Not Detected Not Detected [facility] This nucleic acid amplification test was developed and its performancecharacteristics determined by [facility]. Nucleic acidamplification tests include PCR and [...] in this assay. ID Date Data Source [id number] 02/28/2020 11:14:00 AM EST MEDENT ([facility]) Name Value Range Interpretation Code Description Data Kamala rce(s) Supporting Document(s) Laboratory test finding (navigational concept) Laboratory test result [facility] ([facility]) ID Date Data Source [id number] 02/07/2020 12:00:00 AM EST [facility] Name Value Range Interpretation Code Description Data Kamala rce(s) Supporting Document(s) 2019-nCoV RNA XXX PAOLA+probe-Imp [facility] This lab was ordered by [facility] and reported by [employer] ID Date Data Source [id number] 10/31/2019 03:47:00 PM EDT MEDENT ([facility] Name Value Range Interpretation Code Description Data Kamala rce(s) Supporting Document(s) Bacteria identified in Unspecified specimen by Aer[employer] culture Laboratory test result Abnormal (applies to non-numeric results) MEDENT ([facility] SRC:INFECTION RIGHT GREAT TOE Other Antibiotic [Susceptibility] Laboratory test result MEDENT ([facility] SRC:INFECTION RIGHT GREAT TOE Bacteria identified in Unspecified specimen by Culture Laborator y test result Abnormal (applies to non-numeric results) MEDENT ([facility] SRC:INFECTION RIGHT GREAT TOE Procedure Social History No Information Vital Signs ID Date Data Source UNK Name Value Range Interpretation Code Description Data Source(s) Systolic blood pressure 122 mm[Hg] 122 mm[Hg] M EDENT ([facility] Diastolic blood pressure 66 mm[Hg] 66 mm[Hg] MEDENT ([facility] Body temperature 97.6 [degF] 97.6 [degF] [facility] ([facility] Heart rate 86 /min 86 /min [facility] ([facility] Respiratory rate 14 /min 14 /min [facility] ( [facility] Body height 74.5 [in_i] 74.5 [in_i] MEDENT ([facility] 6'2.50" Body weight 237.00 [lb_av] 237.00 [lb_av] MEDEN T ([facility] [place] body weight 190 [lb_av] 190 [lb_av] MEDEN T ([facility] Body mass index (BMI) [Ratio] 30.0 kg/m2 30.0 k g/m2 [facility] ([facility] Oxygen saturation in Arterial blood by Pulse oximetry 97 % 97 % [facility] ([facility] Diastolic blood pressure 70 mm[Hg] 70 mm[Hg] [facility] ([facility] Body temperature 97.2 [degF] 97.2 [degF] [facility] ([facility] Respiratory rate 16 /min 16 /min [facility] ( [facility] Body height 74.5 [in_i] 74.5 [in_i] MEDENT ([facility] 6'2.50" Body weight 248.00 [lb_av] 248.00 [lb_av] MEDEN T ([facility] [place] body weight 190 [lb_av] 190 [lb_av] MEDEN T ([facility] Body mass index (BMI) [Ratio] 31.4 kg/m2 31.4 k g/m2 [facility] ([facility] Oxygen saturation in Arterial blood by Pulse oximetry 98 % 98 % [facility] ([facility] Heart rate 58 /min 58 /min [facility] ([facility] Systolic blood pressure 124 mm[Hg] 124 mm[Hg] M EDENT ([facility] Heart rate 81 /min 81 /min MEDENT ([facility]) Body temperature 96.7 [degF] 96.7 [degF] [facility] ([facility]) Oxygen saturation in Arterial blood by Pulse oximetry 96 % 96 % [facility] ([facility]) Body temperature 97.6 [degF] 97.6 [degF] MEDENT ([facility] Respiratory rate 16 /min 16 /min MED[facility] ( [facility] Body height 74.5 [in_i] 74.5 [in_i] MEDENT ([facility] 6'2.50" Oxygen saturation in Arterial blood by Pulse oximetry 96 % 96 % MED[facility] ([facility] Systolic blood pressure 110 mm[Hg] 110 mm[Hg] M EDENT ([facility] Diastolic blood pressure 84 mm[Hg] 84 mm[Hg] MEDENT ([facility] Heart rate 86 /min 86 /min MED[facility] ([facility] Body height [Percentile] 96 % 96 % MED[facility] ([facility] [place] body weight 190 [lb_av] 190 [lb_av] MEDEN T ([facility] Body height 74.5 [in_i] [...] Pulse oximetry 98 % 98 % MEDENT ([facility] Systolic blood pressure 122 mm[Hg] 122 mm[Hg] M EDENT ([facility] Diastolic blood pressure 84 mm[Hg] 84 mm[Hg] MEDENT ([facility] Body temperature 96.8 [degF] 96.8 [degF] MEDLEO ([facility] Heart rate 97 /min 97 /min LAURENCE ([facility] Respiratory rate 16 /min 16 /min LAURENCE ( [facility] Body height 74.5 [in_i] 74.5 [in_i] LAURENCE ([facility] 6'2.50" Body height [Percentile] 96 % 96 % LAURENCE ([facility] Body weight 297.00 [lb_av] 297.00 [lb_av] MEDEN T ([facility] [place] body weight 190 [lb_av] 190 [lb_av] MEDEN T ([facility] Body mass index (BMI) [Ratio] 37.6 kg/m2 37.6 k g/m2 MEDLEO ([facility]
[2020-12-25 10:16] LABS: AMPHETAMINES LEVEL URINE NEGATIVE (NEGATIVE); BARBITURATES URINE NEGATIVE (NEGATIVE); BENZODIAZEPINES URINE NEGATIVE (NEGATIVE); CANNABINOIDS URINE NEGATIVE (NEGATIVE); COCAINE METABOLITE URINE NEGATIVE (NEGATIVE); METHADONE URINE NEGATIVE (NEGATIVE); OPIATES URINE NEGATIVE (NEGATIVE); PHENCYCLIDINE URINE NEGATIVE (NEGATIVE)
[2020-12-25 10:33] LABS: ALT/SGPT 21 U/L (12-78); BLOOD UREA NITROGEN 10 MG/DL (7-18); CALCIUM LEVEL 8.8 MG/DL (8.5-10.1); CARBON DIOXIDE LEVEL 30 MEQ/L (21-32); CHLORIDE LEVEL 107 MEQ/L (98-107); CREATININE FOR GFR 0.78 MG/DL (0.70-1.30); GLUCOSE, FASTING 91 MG/DL (70-100); POTASSIUM SERUM 4.4 MEQ/L (3.5-5.1); SODIUM LEVEL 141 MEQ/L (136-145)
[2020-12-25 10:34] LABS: ACETAMINOPHEN LEVEL < 2.0 UG/ML (10.0-30.0); ALBUMIN 3.5 GM/DL (3.2-5.2); BILIRUBIN,DIRECT 0.2 MG/DL (0.0-0.2); BILIRUBIN,TOTAL 0.8 MG/DL (0.2-1.0); ETHYL ALCOHOL (ETHANOL) < 0.003 % (0.000-0.010); SALICYLATE LEVEL < 1.7 MG/DL (5.0-30.0); THYROID STIMULATING HORMONE 0.794 uIU/ML (0.463-3.98); TOTAL PROTEIN 7.2 GM/DL (6.4-8.2)
--- NOTE | 2020-12-25 10:55 | REPVR ---
PROCEDURE INFORMATION: Exam: CT Head Without Contrast Exam date and time: 12/25/2020 10:42 AM Age: 20 years old Clinical indication: Altered mental status/memory loss TECHNIQUE: Imaging protocol: Computed tomography of the head without contrast. Radiation optimization: All CT scans at this facility use at least one of these dose optimization techniques: automated exposure control; mA and/or kV adjustment per patient size (includes targeted exams where dose is matched to clinical indication); or iterative reconstruction. COMPARISON: No relevant prior studies available. FINDINGS: Brain: Normal. No hemorrhage. Unremarkable white matter. No mass effect. Cerebral ventricles: No ventriculomegaly. Paranasal sinuses: Visualized sinuses are unremarkable. No fluid levels. Mastoid air cells: Visualized mastoid air cells are well aerated. Bones/joints: Unremarkable. No acute fracture. Soft tissues: Unremarkable. IMPRESSION: No acute intracranial abnormality. Electronically signed by: Derek Mejía On 12/25/2020 10:55:12 AM
--- NOTE | 2020-12-25 13:15 | MHIPNPDOC ---
[facility] Progress Note Progress Note DATE OF SERVICE: 12/25/20 Patient presented by PSA, criteria for involuntary admission. Patient brought by father due to having auditory hallucinations which cause negative thinking and thoughts of killing himself, patient voiced suicidal ideations, was having delusional behavior. Father concern for possible first psychotic break as there may be some family history. Patient feels he is losing his mind and has been drinking excessive caffeine. Vital Signs Vital Signs Date Time Temp Pulse Resp B/P (MAP) Pulse Ox O2 Delivery O2 Flow Rate FiO2 12/25/20 08:54 97.2 66 18 124/65 (84) 98 Room Air Laboratory Data 24H Labs Laboratory Tests 2 12/25/20 09:34: Nucleated Red Blood Cells % (auto) 0.0, Anion Gap 4L, Calcium Level 8.8, Total Bilirubin 0.8, Direct Bilirubin 0.2, Aspartate Amino Transf (AST/SGOT) 11, [place] ine Aminotransferase (ALT/SGPT) 21, Alkaline Phosphatase 97, Total Protein 7.2, Albumin 3.5, Albumin/Globulin Ratio 0.9, Thyroid Stimulating Hormone (TSH) 0.794, Salicylates Level < 1.7L, Urine Opiates Screen NEGATIVE, Urine Methadone Screen NEGATIVE, Acetaminophen Level < 2.0L, Urine Barbiturates Screen NEGATIVE, Urine Phencyclidine Screen NEGATIVE, Urine Amphetamines Screen NEGATIVE, Urine Benzodiazepines Screen NEGATIVE, Urine Cocaine Metabolite Screen NEGATIVE, Urine Cannabinoids Screen NEGATIVE, Ethyl Alcohol Level < 0.003 CBC/BMP Laboratory Tests 12/25/20 09:34 Allergies Coded Allergies: No Known Allergies (Unverified , 12/25/20) TARYN JASMINE MD Dec 25, 2020 13:15
[2020-12-25] MEDS ORDERED: CETI-24 PO (13:22)
[2020-12-25] MEDS ORDERED: FAMO20TA PO (13:22)
[2020-12-25] MEDS ORDERED: VITMTA PO (13:22)
[2020-12-25] MEDS ORDERED: HOME MED LIST COMPLETE! XX SCH (13:25)
[2020-12-25 19:27] LABS: RSV AMPLIFICATION NEGATIVE (NEGATIVE)
[2020-12-26 00:27] VITALS: BP 120/69
--- NOTE | 2020-12-26 18:53 | ECGEPIP ---
[facility] - ED Test Date: 2020-12-25 Pat Name: STEVE REDDY Department: Room: - Gender: Male [employer] Car [employer]: PAM : 2000 Requested By: ROMY Davila Order Number: [id number] Reading MD: Veronica Espinoza Measurements Intervals [place] Rate: 55 P: 52 KS: 134 QRS: 77 QRSD: 102 T: 66 QT: 396 QTc: 378 Interpretive Statements Sinus bradycardia No prior Electronically Signed on 12-26-2020 18:52:49 EDT by Veronica Espinoza
== END 2020-12-26 00:40 ==
LOC: M ED 08:53
DX: F23 Brief psychotic disorder (principal); F12.10 Cannabis abuse, uncomplicated

== ENCOUNTER 2022-10-04 20:54 | Inpatient (IN) | payer OTHER ==
[~2022-10-04] VITALS: Ht 193 cm; Wt 107.6 kg
[~2022-10-04 20:54] MED LIST changes: +CETI-24 PO; +FAMO20TA PO; +VITMTA PO
[2022-10-04 22:58] LABS: HEMOGLOBIN 14.5 g/dl (13.5-17.5); MEAN CORPUSCULAR HEMOGLOBIN 29.7 pg (27.0-33.0); PLATELET COUNT, AUTOMATED 303 10^3/uL (150-450); RED BLOOD COUNT 4.89 10^6/uL (4.30-6.10); WHITE BLOOD COUNT 7.2 10^3/uL (4.0-10.0)
[2022-10-04 23:21] LABS: ETHYL ALCOHOL (ETHANOL) < 0.003 % (0.000-0.010)
[2022-10-04 23:23] LABS: ACETAMINOPHEN LEVEL < 2.0 UG/ML (10.0-20.0); ALBUMIN 4.5 G/DL (3.2-5.2); ALKALINE PHOSPHATASE 66 U/L (46-116); ALT/SGPT 22 U/L (7.0-40); AST/SGOT 14 U/L (<34); BILIRUBIN,DIRECT 0.2 MG/DL (<0.4); BILIRUBIN,TOTAL 0.6 MG/DL (0.3-1.2); BLOOD UREA NITROGEN 9 MG/DL (9-23); CARBON DIOXIDE LEVEL 28 MMOL/L (20-31); CHLORIDE LEVEL 104 MMOL/L (98-107); CREATININE FOR GFR 0.68 MG/DL (0.70-1.30); GLOMERULAR FILTRATION RATE > 60.0 (>60); GLUCOSE, FASTING 103 MG/DL (60-100); SALICYLATE LEVEL < 3.0 MG/DL (<30); SODIUM LEVEL 143 MMOL/L (136-145); TOTAL PROTEIN 7.7 G/DL (5.7-8.2)
[2022-10-04 23:26] LABS: THYROID STIMULATING HORMONE 1.806 uIU/ML (0.55-4.78)
[2022-10-05] MEDS ORDERED: HOME MED LIST COMPLETE! XX SCH
[2022-10-05 00:41] LABS: AMPHETAMINES LEVEL URINE NEGATIVE (NEGATIVE); BARBITURATES URINE NEGATIVE (NEGATIVE); COCAINE METABOLITE URINE NEGATIVE (NEGATIVE); METHADONE URINE NEGATIVE (NEGATIVE); PHENCYCLIDINE URINE NEGATIVE (NEGATIVE)
[2022-10-05 00:42] LABS: BENZODIAZEPINES URINE NEGATIVE (NEGATIVE); OPIATES URINE NEGATIVE (NEGATIVE)
[2022-10-05 00:48] LABS: CANNABINOIDS URINE POSITIVE (NEGATIVE)
[2022-10-05] MEDS ORDERED: POTASSIUM CHLORIDE 10MEQ SR TABLET PO ONE (01:00)
[2022-10-06] MEDS ORDERED: diphenhydrAMINE 25MG CAP PO PRN (10:55)
[2022-10-06] MEDS ORDERED: ACETAMINOPHEN TAB 650MG DOSE (2X325MG) PO PRN (10:55)
[2022-10-06] MEDS ORDERED: IBUPROFEN 400MG TAB PO PRN (10:55)
[2022-10-06] MEDS ORDERED: MOM 30ML SUSPENSION UDC PO PRN (10:55)
[2022-10-06] MEDS ORDERED: OLANZapine ORAL DISINTEGRATING TAB 5MG PO PRN (10:55)
[2022-10-06] MEDS ORDERED: MAALOX 30 ML SUSP *UDC PO PRN (10:55)
[2022-10-06 14:10] VITALS: BP 144/82; TEMP 97.5; O2SAT 97
[2022-10-07] MEDS: traZODone 50 MG TAB PO PRN (01:38)
[2022-10-07 06:50] VITALS: BP 127/60; TEMP 95.6; O2SAT 100
[2022-10-07] MEDS ORDERED: POTASSIUM CHLORIDE 10MEQ SR TABLET PO ONE (09:00)
[2022-10-07 09:55] LABS: BLOOD UREA NITROGEN 10 MG/DL (9-23); CALCIUM LEVEL 9.8 MG/DL (8.5-10.1); CARBON DIOXIDE LEVEL 26 MMOL/L (20-31); CHLORIDE LEVEL 101 MMOL/L (98-107); CREATININE FOR GFR 0.66 MG/DL (0.70-1.30); GLOMERULAR FILTRATION RATE > 60.0 (>60); GLUCOSE, FASTING 84 MG/DL (60-100); MAGNESIUM LEVEL 1.7 MG/DL (1.8-2.4); POTASSIUM SERUM 3.6 MMOL/L (3.5-5.1); SODIUM LEVEL 138 MMOL/L (136-145)
[2022-10-07] MEDS ORDERED: DIVALPROEX 250MG TAB PO ONE (15:30)
[2022-10-07 16:39] VITALS: BP 141/77; TEMP 97.8; O2SAT 100
[2022-10-07] MEDS: PALIPERIDONE 3MG ER TAB (INVEGA) PO SCH (21:05)
[2022-10-08] MEDS: traZODone 50 MG TAB PO PRN ×2 (01:01→20:02)
[2022-10-08 06:17] VITALS: BP 144/74; TEMP 97.3; O2SAT 100
[2022-10-08] MEDS: SERTRALINE HCL 50 MG TAB PO SCH (08:10)
[2022-10-08] MEDS: DIVALPROEX 250MG TAB PO SCH ×2 (08:10→20:03)
[2022-10-08 17:37] VITALS: BP 164/87; TEMP 97.5; O2SAT 98
[2022-10-08] MEDS: PALIPERIDONE 3MG ER TAB (INVEGA) PO SCH (20:03)
[2022-10-09 06:27] VITALS: BP 103/59; TEMP 97.4; O2SAT 97
[2022-10-09] MEDS: DIVALPROEX 250MG TAB PO SCH ×2 (08:10→20:47)
[2022-10-09] MEDS: SERTRALINE HCL 50 MG TAB PO SCH (08:10)
[2022-10-09 16:36] VITALS: BP 147/79; TEMP 97.3; O2SAT 100
[2022-10-09] MEDS: PALIPERIDONE 3MG ER TAB (INVEGA) PO SCH (20:47)
[2022-10-10 06:48] VITALS: BP 131/78; TEMP 96; O2SAT 98
[2022-10-10] MEDS: SERTRALINE HCL 50 MG TAB PO SCH (09:29)
[2022-10-10] MEDS: DIVALPROEX 250MG TAB PO SCH ×2 (09:29→21:09)
[2022-10-10 16:18] VITALS: BP 142/80; TEMP 97.3; O2SAT 99
[2022-10-10] MEDS: PALIPERIDONE 3MG ER TAB (INVEGA) PO SCH (21:08)
[2022-10-10] MEDS: traZODone 50 MG TAB PO SCH (21:09)
[2022-10-11 06:36] VITALS: BP 124/64; TEMP 96.8; O2SAT 97
[2022-10-11] MEDS: SERTRALINE HCL 50 MG TAB PO SCH (08:25)
[2022-10-11] MEDS: DIVALPROEX 250MG TAB PO SCH ×2 (08:25→20:07)
[2022-10-11 16:19] VITALS: BP 137/83; TEMP 97.4; O2SAT 96
[2022-10-11] MEDS: PALIPERIDONE 3MG ER TAB (INVEGA) PO SCH (20:07)
[2022-10-11] MEDS: traZODone 50 MG TAB PO SCH (20:07)
[2022-10-12 06:20] VITALS: BP 127/63; TEMP 96.2; O2SAT 96
[2022-10-12] MEDS ORDERED: PALIPERIDONE PAL 234MG/1.5ML INJ (INVEGA)(FREE PSY INPT ONLY) IM ONE (07:00)
[2022-10-12] MEDS: DIVALPROEX 250MG TAB PO SCH ×2 (08:17→19:59)
[2022-10-12] MEDS: SERTRALINE HCL 50 MG TAB PO SCH (08:17)
[2022-10-12 18:00] VITALS: BP 147/88; TEMP 98; O2SAT 100
[2022-10-12] MEDS: traZODone 50 MG TAB PO SCH (19:59)
[2022-10-12] MEDS: PALIPERIDONE 3MG ER TAB (INVEGA) PO SCH (19:59)
[2022-10-13 05:51] VITALS: BP 148/80; TEMP 98
[2022-10-13] MEDS: SERTRALINE HCL 50 MG TAB PO SCH (08:08)
[2022-10-13] MEDS: DIVALPROEX 250MG TAB PO SCH ×2 (08:09→20:33)
[2022-10-13 18:51] VITALS: BP 132/82; TEMP 98.4; O2SAT 100
[2022-10-13] MEDS: PALIPERIDONE 3MG ER TAB (INVEGA) PO SCH (20:33)
[2022-10-13] MEDS: traZODone 50 MG TAB PO SCH (20:33)
[2022-10-14 06:15] VITALS: BP 117/67; TEMP 97.2; O2SAT 96
[2022-10-14] MEDS: SERTRALINE HCL 50 MG TAB PO SCH (08:05)
[2022-10-14] MEDS: DIVALPROEX 250MG TAB PO SCH ×2 (08:05→20:24)
[2022-10-14 17:20] VITALS: BP 128/74; TEMP 96.4; O2SAT 96
[2022-10-14] MEDS: traZODone 50 MG TAB PO SCH (20:24)
[2022-10-14] MEDS: PALIPERIDONE 3MG ER TAB (INVEGA) PO SCH (20:24)
[2022-10-15] MEDS: DIVALPROEX 250MG TAB PO SCH (08:10)
[2022-10-15] MEDS: SERTRALINE HCL 50 MG TAB PO SCH (08:10)
[2022-10-15] MEDS ORDERED: PALIPERIDONE PAL 156MG/1ML INJ(INVEGA)(FREE PSY INPT ONLY) IM ONE ×2 (09:50→11:00)
[2022-10-15] MEDS ORDERED: INVE234I IM (10:24)
[2022-10-15] MEDS ORDERED: SERT50TA29 PO (10:24)
[2022-10-15] MEDS ORDERED: TRAZ-252 PO (10:24)
[2022-10-15] MEDS ORDERED: DEPA250T32 PO (10:24)
== END 2022-10-15 13:20 | disposition home or self-care (01) | DRG 753 ==
LOC: M ED 20:54 → M ED INP 10-06 10:53 → M PSY 10-06 14:20
PROVIDERS: ADMIT Student in an Organized Health Care Education/Training Program; ATTEND Student in an Organized Health Care Education/Training Program
DX: F31.2 Bipolar disorder, current episode manic severe with psychotic features (principal); F12.20 Cannabis dependence, uncomplicated; E87.6 Hypokalemia; Z20.822 Contact with and (suspected) exposure to COVID-19

== ENCOUNTER 2023-03-08 17:33 | Inpatient (IN) | payer MEDICAID, OTHER ==
[~2023-03-08] VITALS: Ht 190.5 cm; Wt 120.3 kg
[~2023-03-08 17:33] MED LIST changes: +DEPA250T32 PO; +INVE234I IM; +SERT50TA29 PO; +TRAZ-252 PO
[2023-03-08] MEDS ORDERED: ZOLO100T PO ×2 (17:56→19:10)
[2023-03-08] MEDS ORDERED: MED REC IN PROGRESS XX SCH (18:25)
[2023-03-08 18:57] LABS: HEMATOCRIT 41.2 % (42.0-52.0); HEMOGLOBIN 13.8 g/dl (13.5-17.5); MEAN CORPUSCULAR HEMOGLOBIN 29.7 pg (27.0-33.0); MEAN CORPUSCULAR HGB CONC 33.5 g/dl (32.0-36.5); MEAN CORPUSCULAR VOLUME 88.8 fl (80.0-96.0); PLATELET COUNT, AUTOMATED 269 10^3/uL (150-450); RED BLOOD COUNT 4.64 10^6/uL (4.30-6.10); WHITE BLOOD COUNT 8.7 10^3/uL (4.0-10.0)
[2023-03-08] MEDS ORDERED: TRAZ-186 PO (19:10)
[2023-03-08] MEDS ORDERED: DEPA250T32 PO (19:10)
[2023-03-08] MEDS ORDERED: INVE234I IM (19:10)
[2023-03-08] MEDS ORDERED: HOME MED LIST COMPLETE! XX SCH (19:15)
[2023-03-08 19:16] LABS: AMPHETAMINES LEVEL URINE NEGATIVE (NEGATIVE); BARBITURATES URINE NEGATIVE (NEGATIVE); BENZODIAZEPINES URINE NEGATIVE (NEGATIVE); COCAINE METABOLITE URINE NEGATIVE (NEGATIVE); METHADONE URINE NEGATIVE (NEGATIVE); OPIATES URINE NEGATIVE (NEGATIVE); PHENCYCLIDINE URINE NEGATIVE (NEGATIVE)
[2023-03-08 19:17] LABS: CANNABINOIDS URINE POSITIVE (NEGATIVE)
[2023-03-08 19:19] LABS: ETHYL ALCOHOL (ETHANOL) < 0.003 % (0.000-0.010); SALICYLATE LEVEL < 3.0 MG/DL (<30)
[2023-03-08 19:20] LABS: ALBUMIN 3.8 G/DL (3.2-5.2); ALKALINE PHOSPHATASE 60 U/L (46-116); ALT/SGPT 20 U/L (7.0-40); AST/SGOT 11 U/L (<34); BILIRUBIN,DIRECT 0.1 MG/DL (<0.4); BILIRUBIN,TOTAL 0.3 MG/DL (0.3-1.2); BLOOD UREA NITROGEN 16 MG/DL (9-23); CALCIUM LEVEL 9.6 MG/DL (8.5-10.1); CARBON DIOXIDE LEVEL 30 MMOL/L (20-31); CHLORIDE LEVEL 105 MMOL/L (98-107); CREATININE FOR GFR 0.62 MG/DL (0.70-1.30); GLOMERULAR FILTRATION RATE > 60.0 (>60); GLUCOSE, FASTING 94 MG/DL (60-100); POTASSIUM SERUM 3.7 MMOL/L (3.5-5.1); SODIUM LEVEL 142 MMOL/L (136-145); TOTAL PROTEIN 7.2 G/DL (5.7-8.2)
[2023-03-08 19:22] LABS: THYROID STIMULATING HORMONE 1.008 uIU/ML (0.55-4.78)
[2023-03-08] MEDS ORDERED: IBUPROFEN 400MG TAB PO PRN (19:45)
[2023-03-08] MEDS ORDERED: diphenhydrAMINE 25MG CAP PO PRN (19:45)
[2023-03-08] MEDS ORDERED: MAALOX 30 ML SUSP *UDC PO PRN (19:45)
[2023-03-08] MEDS ORDERED: ACETAMINOPHEN TAB 650MG DOSE (2X325MG) PO PRN (19:45)
[2023-03-08] MEDS ORDERED: MOM 30ML SUSPENSION UDC PO PRN (19:45)
[2023-03-08] MEDS ORDERED: traZODone 50 MG TAB PO PRN (19:45)
[2023-03-08 21:38] VITALS: BP 140/83; TEMP 97; O2SAT 97
[2023-03-09 06:47] VITALS: BP 143/83; TEMP 97; O2SAT 98
[2023-03-09] MEDS ORDERED: SERTRALINE 100 MG TAB PO SCH (09:00)
[2023-03-09] MEDS: DIVALPROEX 250MG TAB PO SCH ×2 (10:52→20:33)
[2023-03-09] MEDS: SERTRALINE 100 MG TAB PO SCH (10:53)
[2023-03-09 18:18] VITALS: BP 111/56; TEMP 97.6
[2023-03-09] MEDS: traZODone 50 MG TAB PO SCH (20:33)
[2023-03-10 06:28] VITALS: BP 134/85; TEMP 98; O2SAT 96
[2023-03-10 07:12] LABS: CHOLESTEROL RISK RATIO 3.49 (<5); HDL CHOLESTEROL 44.9 MG/DL (>40); LDL CHOLESTEROL 100.7 MG/DL (<100); NON-HDL-C 112.1 MG/DL
[2023-03-10] MEDS: DIVALPROEX 250MG TAB PO SCH ×2 (08:24→20:18)
[2023-03-10] MEDS: SERTRALINE 100 MG TAB PO SCH (08:24)
[2023-03-10] MEDS ORDERED: INFLUENZA QUADRIVALENT PF VACCINE 0.5ML SYRINGE IM.IMMUN ONE (09:00)
[2023-03-10 17:07] VITALS: BP 124/69; TEMP 97.7; O2SAT 97
[2023-03-10] MEDS: traZODone 50 MG TAB PO SCH (20:18)
[2023-03-11 06:30] VITALS: BP 123/73; TEMP 97.5; O2SAT 96
[2023-03-11] MEDS: DIVALPROEX 250MG TAB PO SCH ×2 (08:38→20:01)
[2023-03-11] MEDS: SERTRALINE 100 MG TAB PO SCH (08:39)
[2023-03-11 17:12] VITALS: BP 121/58; TEMP 97; O2SAT 97
[2023-03-11] MEDS: risperiDONE 2 MG TAB PO SCH (20:01)
[2023-03-11] MEDS: traZODone 50 MG TAB PO SCH (20:01)
[2023-03-12 06:40] VITALS: BP 112/69; TEMP 98.3
[2023-03-12] MEDS: SERTRALINE 100 MG TAB PO SCH (08:40)
[2023-03-12] MEDS: DIVALPROEX 250MG TAB PO SCH ×2 (08:40→20:33)
[2023-03-12 16:35] VITALS: BP 131/70; TEMP 97.4; O2SAT 99
[2023-03-12] MEDS: traZODone 50 MG TAB PO SCH (20:32)
[2023-03-12] MEDS: risperiDONE 2 MG TAB PO SCH (20:32)
[2023-03-13 06:40] VITALS: BP 107/53; TEMP 97.5; O2SAT 97
[2023-03-13] MEDS: DIVALPROEX 250MG TAB PO SCH ×2 (08:08→20:51)
[2023-03-13] MEDS: SERTRALINE 100 MG TAB PO SCH (08:08)
[2023-03-13 16:01] VITALS: BP 123/60; TEMP 97.5; O2SAT 98
[2023-03-13] MEDS: traZODone 50 MG TAB PO SCH (20:51)
[2023-03-13] MEDS: risperiDONE 2 MG TAB PO SCH (20:51)
[2023-03-14 06:42] VITALS: BP 134/74; TEMP 97.4; O2SAT 96
[2023-03-14] MEDS: DIVALPROEX 250MG TAB PO SCH ×2 (08:53→20:25)
[2023-03-14] MEDS: SERTRALINE 100 MG TAB PO SCH (08:53)
[2023-03-14 15:33] VITALS: BP 116/58; TEMP 97.8; O2SAT 98
[2023-03-14] MEDS: traZODone 50 MG TAB PO SCH (20:25)
[2023-03-14] MEDS: risperiDONE 2 MG TAB PO SCH (20:25)
[2023-03-15 06:50] VITALS: BP 102/51; TEMP 97.3; O2SAT 98
[2023-03-15] MEDS: DIVALPROEX 250MG TAB PO SCH (08:31)
[2023-03-15] MEDS: SERTRALINE 100 MG TAB PO SCH (08:31)
[2023-03-15] MEDS ORDERED: RISP-9 PO (11:59)
[2023-03-15] MEDS ORDERED: DEPA250T32 PO (11:59)
[2023-03-15] MEDS ORDERED: ZOLO100T PO (11:59)
[2023-03-15] MEDS ORDERED: INVE234I IM (11:59)
== END 2023-03-15 12:14 | disposition home or self-care (01) | DRG 753 ==
LOC: M ED 17:33 → M ED INP 19:42 → M PSY 21:22
PROVIDERS: ADMIT Student in an Organized Health Care Education/Training Program; ATTEND Student in an Organized Health Care Education/Training Program
DX: F31.60 Bipolar disorder, current episode mixed, unspecified (principal); F20.9 Schizophrenia, unspecified; F12.90 Cannabis use, unspecified, uncomplicated; Z91.141 Patient's other noncompliance with medication regimen due to financial hardship; Z79.899 Other long term (current) drug therapy

== ENCOUNTER 2023-08-27 22:06 | Emergency (ER) | payer MEDICAID, OTHER ==
[~2023-08-27] VITALS: Ht 192.4 cm; Wt 127.6 kg
[~2023-08-27 22:06] MED LIST changes: +RISP-106 PO; +TRAZ-186 PO; +ZOLO100T PO
[2023-08-28 01:50] VITALS: BP 124/48; TEMP 98.8; O2SAT 98
== END 2023-08-28 01:54 | disposition home or self-care (01) ==
LOC: M ED 22:06
DX: S80.212A Abrasion, left knee, initial encounter (principal); W17.2XXA Fall into hole, initial encounter; Y92.9 Unspecified place or not applicable; Y93.9 Activity, unspecified; Y99.9 Unspecified external cause status; F31.9 Bipolar disorder, unspecified

== ENCOUNTER 2023-11-13 18:31 | Inpatient (IN) | payer OTHER ==
[~2023-11-13] VITALS: Ht 190.5 cm; Wt 129.4 kg
[2023-11-13 19:30] LABS: HEMOGLOBIN 14.1 g/dl (13.5-17.5); MEAN CORPUSCULAR HEMOGLOBIN 29.7 pg (27.0-33.0); MEAN CORPUSCULAR HGB CONC 34.4 g/dl (32.0-36.5); MEAN CORPUSCULAR VOLUME 86.3 fl (80.0-96.0); PLATELET COUNT, AUTOMATED 303 10^3/uL (150-450); RED BLOOD COUNT 4.75 10^6/uL (4.30-6.10); WHITE BLOOD COUNT 7.3 10^3/uL (4.0-10.0)
[2023-11-13] MEDS ORDERED: HOME MED LIST COMPLETE! XX SCH (19:30)
[2023-11-13] MEDS ORDERED: DIVA250T67 PO (19:30)
[2023-11-13 19:50] LABS: ETHYL ALCOHOL (ETHANOL) < 0.003 % (0.000-0.010)
[2023-11-13 19:52] LABS: ALBUMIN 3.4 G/DL (3.2-5.2); ALKALINE PHOSPHATASE 65 U/L (46-116); ALT/SGPT 17 U/L (7.0-40); AST/SGOT < 8 U/L (<34); BILIRUBIN,DIRECT 0.1 MG/DL (<0.4); BILIRUBIN,TOTAL 0.3 MG/DL (0.3-1.2); BLOOD UREA NITROGEN 14 MG/DL (9-23); CALCIUM LEVEL 9.7 MG/DL (8.5-10.1); CARBON DIOXIDE LEVEL 25 MMOL/L (20-31); CHLORIDE LEVEL 109 MMOL/L (98-107); CREATININE FOR GFR 0.68 MG/DL (0.70-1.30); GLOMERULAR FILTRATION RATE > 60.0 (>60); GLUCOSE, FASTING 92 MG/DL (60-100); POTASSIUM SERUM 3.7 MMOL/L (3.5-5.1); SALICYLATE LEVEL < 3.0 MG/DL (<30); SODIUM LEVEL 141 MMOL/L (136-145); TOTAL PROTEIN 7.3 G/DL (5.7-8.2)
[2023-11-13 19:54] LABS: THYROID STIMULATING HORMONE 1.481 uIU/ML (0.55-4.78)
[2023-11-13 20:37] LABS: AMPHETAMINES LEVEL URINE NEGATIVE (NEGATIVE); BARBITURATES URINE NEGATIVE (NEGATIVE); BENZODIAZEPINES URINE NEGATIVE (NEGATIVE); CANNABINOIDS URINE NEGATIVE (NEGATIVE); COCAINE METABOLITE URINE NEGATIVE (NEGATIVE); METHADONE URINE NEGATIVE (NEGATIVE); OPIATES URINE NEGATIVE (NEGATIVE); PHENCYCLIDINE URINE NEGATIVE (NEGATIVE)
[2023-11-14] MEDS: SERTRALINE 100 MG TAB PO SCH (09:37)
[2023-11-14] MEDS: DIVALPROEX 250MG TAB PO SCH ×2 (09:37→20:45)
[2023-11-14] MEDS ORDERED: ACETAMINOPHEN TAB 650MG DOSE (2X325MG) PO PRN (14:35)
[2023-11-14] MEDS ORDERED: MOM 30ML SUSPENSION UDC PO PRN (14:35)
[2023-11-14] MEDS ORDERED: IBUPROFEN 400MG TAB PO PRN (14:35)
[2023-11-14] MEDS ORDERED: traZODone 50 MG TAB PO PRN (14:35)
[2023-11-14] MEDS ORDERED: MAALOX 30 ML SUSP *UDC PO PRN (14:35)
[2023-11-14] MEDS ORDERED: diphenhydrAMINE 25MG CAP PO PRN (14:35)
[2023-11-14 15:38] VITALS: BP 116/76; TEMP 97.4; O2SAT 100
[2023-11-14] MEDS ORDERED: traZODone 50 MG TAB PO SCH (21:00)
[2023-11-15 06:34] VITALS: BP 128/54; TEMP 97.1; O2SAT 96
[2023-11-15] MEDS: SERTRALINE 100 MG TAB PO SCH (09:10)
[2023-11-15] MEDS: ESCITALOPRAM OXALATE 10 MG TAB (LEXAPRO) PO SCH (10:06)
[2023-11-15 17:35] VITALS: BP 132/72; TEMP 97; O2SAT 97
[2023-11-16 06:22] VITALS: BP 120/63; TEMP 97.6; O2SAT 96
[2023-11-16 15:43] VITALS: BP 134/75; TEMP 97; O2SAT 97
[2023-11-17 06:16] VITALS: BP 136/73; TEMP 97.1; O2SAT 96
[2023-11-17] MEDS ORDERED: PALIPERIDONE PAL 234MG/1.5ML INJ (INVEGA)(FREE PSY INPT ONLY) IM SCH (09:00)
[2023-11-17 17:23] VITALS: BP 136/76; TEMP 97.6; O2SAT 99
[2023-11-18 06:36] VITALS: BP 143/62; TEMP 97.4; O2SAT 100
[2023-11-18 18:28] VITALS: BP 126/76; TEMP 97; O2SAT 100
[2023-11-19 06:04] VITALS: BP 106/62; TEMP 97.1; O2SAT 100
[2023-11-19] MEDS: ESCITALOPRAM OXALATE 5MG TABLET (LEXAPRO) PO SCH (08:49)
[2023-11-19 16:14] VITALS: BP 118/55; TEMP 97.4; O2SAT 98
[2023-11-20 06:19] VITALS: BP 133/64; TEMP 97.5; O2SAT 98
[2023-11-20 16:04] VITALS: BP 126/72; TEMP 97.8; O2SAT 99
[2023-11-21 06:12] VITALS: BP 134/74; TEMP 97.8; O2SAT 97
[2023-11-21] MEDS: FLUZONE VACCINE TRIVALENT PF(2024-25) 0.5ML SYRINGE IM.IMMUN ONE (08:39)
[2023-11-21 15:52] VITALS: BP 121/67; TEMP 97.8; O2SAT 96
[2023-11-22 06:22] VITALS: BP 126/62; TEMP 97.5; O2SAT 97
[2023-11-22] MEDS: ESCITALOPRAM OXALATE 5MG TABLET (LEXAPRO) PO ONE (10:58)
[2023-11-22 15:21] VITALS: BP 144/74; TEMP 97; O2SAT 100
[2023-11-23 06:10] VITALS: BP 127/54; TEMP 97.3; O2SAT 99
[2023-11-23] MEDS: ESCITALOPRAM OXALATE 10 MG TAB (LEXAPRO) PO SCH (08:14)
[2023-11-23 16:56] VITALS: BP 124/70; TEMP 97.3; O2SAT 98
[2023-11-24 06:15] VITALS: BP 148/68; TEMP 97; O2SAT 97
[2023-11-24 15:46] VITALS: BP 143/66; TEMP 97; O2SAT 96
[2023-11-25 06:34] VITALS: BP 100/56; TEMP 96.9; O2SAT 98
[2023-11-25] MEDS ORDERED: LEXA1TAB PO (08:57)
== END 2023-11-25 10:55 | disposition home or self-care (01) | DRG 750 ==
LOC: M ED 18:31 → M ED INP 11-14 14:34 → M PSY 11-14 15:38
PROVIDERS: ADMIT Psychiatry & Neurology Psychiatry; ATTEND Psychiatry & Neurology Psychiatry
DX: F25.9 Schizoaffective disorder, unspecified (principal); R45.851 Suicidal ideations; Z79.899 Other long term (current) drug therapy

== ENCOUNTER 2024-06-19 02:15 | Emergency (ER) | payer MEDICAID, OTHER ==
[~2024-06-19] VITALS: Ht 190.5 cm; Wt 136.4 kg
[~2024-06-19 02:15] MED LIST changes: +DIVA250T67 PO; +LEXA1TAB PO
[2024-06-19] MEDS: BOOSTRIX VACCINE (TETANUS/DIPHTH/ACEL. PERTUSSIS) 0.5ML SYR IM.IMMUN ONE (07:46)
[2024-06-19] MEDS ORDERED: BACI500O8 TOP (08:47)
[2024-06-19 09:06] VITALS: BP 139/90; TEMP 97.7; O2SAT 96
== END 2024-06-19 09:15 | disposition home or self-care (01) ==
LOC: M ED 02:15
DX: S63.502A Unspecified sprain of left wrist, initial encounter (principal); S00.81XA Abrasion of other part of head, initial encounter; M25.461 Effusion, right knee; W01.198A Fall on same level from slipping, tripping and stumbling with subsequent striking against other object, initial encounter; Y92.410 Unspecified street and highway as the place of occurrence of the external cause; Y93.89 Activity, other specified; Y99.9 Unspecified external cause status; Z79.899 Other long term (current) drug therapy; Z23 Encounter for immunization

== ENCOUNTER 2024-12-17 14:40 | Inpatient (IN) | payer OTHER ==
[~2024-12-17] VITALS: Ht 193 cm; Wt 137.4 kg
[~2024-12-17 14:40] MED LIST changes: +BACI500O8 TOP; -DEPA250T32 PO; +DIVA-65 PO
[2024-12-17] MEDS ORDERED: BUPR150T12 PO (15:00)
[2024-12-17] MEDS ORDERED: CETI10CH PO (15:03)
[2024-12-17] MEDS ORDERED: MUCI1TAB18 PO (15:03)
[2024-12-17] MEDS ORDERED: FAMO10TA50 PO (15:03)
[2024-12-17 15:08] LABS: PLATELET COUNT, AUTOMATED 257 10^3/uL (150-450)
[2024-12-17 15:31] LABS: AMPHETAMINES LEVEL URINE NEGATIVE (NEGATIVE); BARBITURATES URINE NEGATIVE (NEGATIVE); BENZODIAZEPINES URINE NEGATIVE (NEGATIVE); CANNABINOIDS URINE NEGATIVE (NEGATIVE); COCAINE METABOLITE URINE NEGATIVE (NEGATIVE); METHADONE URINE NEGATIVE (NEGATIVE); OPIATES URINE NEGATIVE (NEGATIVE); PHENCYCLIDINE URINE NEGATIVE (NEGATIVE)
[2024-12-17 15:33] LABS: ETHYL ALCOHOL (ETHANOL) < 0.003 % (0.000-0.010)
[2024-12-17 15:35] LABS: ALT/SGPT 21 U/L (7.0-40); AST/SGOT 14 U/L (<34); CALCIUM LEVEL 9.1 MG/DL (8.5-10.1); CARBON DIOXIDE LEVEL 26 MMOL/L (20-31); CHLORIDE LEVEL 106 MMOL/L (98-107); CREATININE FOR GFR 0.70 MG/DL (0.70-1.30); GLOMERULAR FILTRATION RATE > 90.0 (>60); POTASSIUM SERUM 4.1 MMOL/L (3.5-5.1); SALICYLATE LEVEL < 3.0 MG/DL (<30); SODIUM LEVEL 144 MMOL/L (136-145)
[2024-12-17] MEDS ORDERED: CETI-24 PO (16:44)
[2024-12-17] MEDS ORDERED: LEXA1TAB2 PO (16:44)
[2024-12-17] MEDS ORDERED: HOME MED LIST COMPLETE! XX SCH (16:45)
[2024-12-17] MEDS ORDERED: LORazepam 1 MG TAB PO PRN (18:40)
[2024-12-17] MEDS ORDERED: FAMOTIDINE 20 MG TAB PO PRN (18:40)
[2024-12-17] MEDS ORDERED: MOM 30 ML SUSPENSION UDC PO PRN (18:40)
[2024-12-17] MEDS ORDERED: IBUPROFEN 400 MG TAB PO PRN (18:40)
[2024-12-17] MEDS ORDERED: MAALOX 30 ML SUSP *UDC PO PRN (18:40)
[2024-12-17] MEDS ORDERED: ACETAMINOPHEN 325 MG TAB PO PRN (18:40)
[2024-12-17] MEDS ORDERED: OLANZapine 5 MG TAB PO PRN (18:40)
[2024-12-17] MEDS: traZODone 50 MG TAB PO PRN (21:02)
[2024-12-17] MEDS: DIVALPROEX 250 MG TAB PO SCH (21:02)
[2024-12-17 21:49] VITALS: BP 150/81; TEMP 97.1; O2SAT 98
[2024-12-18 06:22] VITALS: BP 121/57; TEMP 96.1; O2SAT 94
[2024-12-18] MEDS: ESCITALOPRAM OXALATE 10 MG TABLET PO SCH (09:52)
[2024-12-18] MEDS: buPROPion **XL** 150 MG TABLET PO SCH (09:53)
[2024-12-18] MEDS: CETIRIZINE 10 MG TAB PO SCH (09:53)
[2024-12-18 15:16] VITALS: BP 137/81; TEMP 97.7; O2SAT 98
[2024-12-18] MEDS: DIVALPROEX 500 MG TAB PO SCH (20:18)
[2024-12-19 06:22] VITALS: BP 121/73; TEMP 97.5; O2SAT 97
[2024-12-19] MEDS: ESCITALOPRAM OXALATE 10 MG TABLET PO SCH (08:58)
[2024-12-19 15:12] VITALS: BP 138/79; TEMP 97.6; O2SAT 95
[2024-12-19] MEDS: PALIPERIDONE PAL 234MG/1.5ML INJ (FREE PSY INPT ONLY) IM ONE (18:47)
[2024-12-20 06:21] VITALS: BP 139/60; TEMP 98.4; O2SAT 97
[2024-12-20 15:42] VITALS: BP 134/87; TEMP 97.1; O2SAT 97
[2024-12-21 06:33] VITALS: BP 110/64; TEMP 96.6; O2SAT 99
[2024-12-21 15:59] VITALS: BP 123/57; TEMP 97; O2SAT 99
[2024-12-22] MEDS ORDERED: LEXA1TAB PO (00:52)
[2024-12-22] MEDS ORDERED: TRAZ-252 PO (00:52)
[2024-12-22] MEDS ORDERED: DIVA-41 PO (00:52)
[2024-12-22] MEDS ORDERED: HYDR-3363 PO (00:52)
[2024-12-22 06:12] VITALS: BP 103/62; TEMP 97.3; O2SAT 98
== END 2024-12-22 10:47 | disposition home or self-care (01) | DRG 750 ==
LOC: M ED 14:40 → M ED INP 18:37 → M PSY 20:30
PROVIDERS: ADMIT Psychiatry & Neurology Neurology; ATTEND Psychiatry & Neurology Neurology
DX: F25.0 Schizoaffective disorder, bipolar type (principal); R45.851 Suicidal ideations; F41.0 Panic disorder [episodic paroxysmal anxiety]; Z79.899 Other long term (current) drug therapy; E66.9 Obesity, unspecified; F41.1 Generalized anxiety disorder